=== PATIENT | male | born 1950 | race Two or more races ===

== ENCOUNTER → 2022-06-10 | Outpatient (CLI) | payer OTHER ==
[2022-06-10 07:07] LABS: Urine Bacteria NONE SEEN /hpf (None Seen); Urine Blood Negative /uL (Negative); Urine Specific Gravity 1.003 (1.001-1.035); Urine WBC <1 /hpf (0 - 3)
[2022-06-10 07:10] LABS: Basophils # (auto) 0 10 ^3/uL (0-0.2); Basophils % (auto) 0.6 % (0.0-2.0); Eosinophils # (auto) 0.1 10 ^3/uL (0-0.8); Hematocrit 39.7 % (41.0-53.0); Hemoglobin 13.6 g/dL (13.5-17.5); Lymphocytes # (auto) 1.5 10 ^3/uL (0.4-5.4); Lymphocytes % (auto) 23.5 % (10.0-50.0); Mean Corpuscular Hemoglobin 28.1 pg (28.0-32.0); Mean Corpuscular Hgb Conc. 34.3 g/dL (32.0-36.0); Mean Corpuscular Volume 81.9 fL (80.0-100.0); Monocytes # (auto) 0.6 10 ^3/uL (0-1.3); Monocytes % (auto) 8.6 % (0.0-12.0); Neutrophils # (auto) 4.2 10 ^3/uL (1.6-8.6); Neutrophils % (auto) 65.3 % (37.0-80.0); Nucleated Red Blood Cells % 0.2 %; Red Blood Cells 4.84 10^6/uL (4.5-5.90); Red Cell Distribution Width 14.1 % (11.8-14.3); White Blood Cell 6.4 10^3/uL (4.4-10.8)
[2022-06-10 07:39] LABS: Potassium 3.9 mmol/L (3.5-5.1)
[2022-06-10 07:42] LABS: BUN/Creatinine Ratio 13.3 (10.0-20.0)
== END | disposition home or self-care (01) ==
LOC: LAB 06:24
PROVIDERS: ATTEND Internal Medicine
DX: I10 Essential (primary) hypertension (principal); E11.9 Type 2 diabetes mellitus without complications; E78.5 Hyperlipidemia, unspecified; D69.6 Thrombocytopenia, unspecified
CPT/HCPCS: 36415; 80048; 80061; 81001; 83036; 85025

== ENCOUNTER → 2022-12-26 | Outpatient (CLI) | payer OTHER ==
[2022-12-26 08:00] LABS: Chloride 102 mmol/L (98-107); Potassium 4.1 mmol/L (3.5-5.1); Sodium 137 mmol/L (136-145)
[2022-12-26 08:01] LABS: Anion Gap 8 (5-15); Calcium 9.2 mg/dL (8.5-10.1); Carbon Dioxide 27 mmol/L (20-30)
[2022-12-26 08:06] LABS: BUN/Creatinine Ratio 13.1 (10.0-20.0); Blood Urea Nitrogen 13 mg/dL (9-23); Glucose 140 mg/dL (74-106)
== END | disposition home or self-care (01) ==
LOC: LAB 06:58
PROVIDERS: ATTEND Internal Medicine
DX: E11.65 Type 2 diabetes mellitus with hyperglycemia (principal)
CPT/HCPCS: 36415; 80048; 83036

== ENCOUNTER → 2023-05-22 | Outpatient (CLI) | payer OTHER ==
[2023-05-22 08:03] LABS: Cholesterol 134 mg/dL (< 200); Triglycerides 136 mg/dL (< 150)
[2023-05-22 08:04] LABS: LDL Cholesterol 91 mg/dL (< 100)
[2023-05-22 08:05] LABS: HDL Cholesterol 36 mg/dL (40-59)
== END | disposition home or self-care (01) ==
LOC: LAB 06:38
PROVIDERS: ATTEND Internal Medicine
DX: Z12.5 Encounter for screening for malignant neoplasm of prostate (principal); Z12.11 Encounter for screening for malignant neoplasm of colon; E11.65 Type 2 diabetes mellitus with hyperglycemia; E78.5 Hyperlipidemia, unspecified
CPT/HCPCS: 36415; 80061; 82270; 83036; 84153

== ENCOUNTER → 2023-09-09 | Outpatient (CLI) | payer OTHER ==
[2023-09-09 06:52] LABS: Urine Bacteria None Seen /hpf (None Seen)
[2023-09-09 07:44] LABS: Urine Blood Negative /uL (Negative); Urine Clarity Clear (Clear); Urine Color Yellow (Yellow); Urine Mucus FEW (None Seen); Urine Protein, UAD TRACE (Negative); Urine Specific Gravity 1.018 (1.001-1.035); Urine Urobilinogen Normal (Negative); Urine WBC 1 /hpf (0 - 3)
== END | disposition home or self-care (01) ==
LOC: LAB 06:41
PROVIDERS: ATTEND Internal Medicine
DX: E11.69 Type 2 diabetes mellitus with other specified complication (principal)
CPT/HCPCS: 36415; 81001; 83036

== ENCOUNTER → 2024-06-21 | Outpatient (CLI) | payer MEDICAID ==
[2024-06-21 07:07] LABS: Urine Bacteria None Seen /hpf (None Seen)
[2024-06-21 08:05] LABS: Urine Blood Negative /uL (Negative); Urine Clarity Clear (Clear); Urine Color Light-Yellow (Yellow); Urine Protein, UAD Negative (Negative); Urine Specific Gravity 1.013 (1.001-1.035); Urine Squamous Epithelial Cell FEW /hpf (<5); Urine Urobilinogen Normal (Negative); Urine WBC 1 /HPF (0-3); Urine pH 5.5 (5.0-9.0)
[2024-06-21 08:12] LABS: Basophils # (auto) 0 10 ^3/uL (0-0.2); Basophils % (auto) 0.6 % (0.0-2.0); Eosinophils # (auto) 0.1 10 ^3/uL (0-0.8); Eosinophils % (auto) 1.3 % (0.0-7.0); Hematocrit 40.1 % (41.0-53.0); Hemoglobin 13.2 g/dL (13.5-17.5); Lymphocytes # (auto) 1.4 10 ^3/uL (0.4-5.4); Lymphocytes % (auto) 18.7 % (10.0-50.0); Mean Corpuscular Hemoglobin 28.4 pg (28.0-32.0); Mean Corpuscular Volume 85.9 fL (80.0-100.0); Monocytes # (auto) 0.6 10 ^3/uL (0-1.3); Monocytes % (auto) 8.3 % (0.0-12.0); Neutrophils # (auto) 5.2 10 ^3/uL (1.6-8.6); Neutrophils % (auto) 71.1 % (37.0-80.0); Platelet Count (auto) 78 10^3/uL (140-450); Red Blood Cells 4.67 10^6/uL (4.5-5.90); White Blood Cell 7.4 10^3/uL (4.4-10.8)
[2024-06-21 08:23] LABS: Calcium 10.1 mg/dL (8.7-10.4); Carbon Dioxide 28 mmol/L (20-31); Chloride 102 mmol/L (98-107); Potassium 4.2 mmol/L (3.5-5.1); Sodium 138 mmol/L (136-145)
[2024-06-21 08:24] LABS: Anion Gap 8 (5-15)
[2024-06-21 08:29] LABS: Triglycerides 137 mg/dL (< 150)
[2024-06-21 08:30] LABS: BUN/Creatinine Ratio 15.4 (10.0-20.0); Blood Urea Nitrogen 16 mg/dL (9-23); Cholesterol 151 mg/dL (< 200)
[2024-06-21 08:34] LABS: Glucose 172 mg/dL (74-106); HDL Cholesterol 38 mg/dL (40-59); LDL Cholesterol 106 mg/dL (< 100)
== END | disposition home or self-care (01) ==
LOC: LAB 06:45
PROVIDERS: ATTEND Internal Medicine
DX: I10 Essential (primary) hypertension (principal); E78.5 Hyperlipidemia, unspecified; D69.3 Immune thrombocytopenic purpura
CPT/HCPCS: 36415; 80048; 80061; 81001; 83036; 85025

== ENCOUNTER 2024-07-13 15:23 | Inpatient (IN) | payer MEDICAID ==
[~2024-07-13] VITALS: Ht 175.3 cm; Wt 65.4 kg
--- NOTE | 2024-07-13 16:30 | ED.PDOC ---
HPI (NEURO) HPI Comments 74 year old male presents to the ED with chief complaint of facial droop. Patient reports that since waking up at 6am, he has been experiencing left sided facial droop and some slurred speech. Patient relays that his last known well was at 10pm last night. Patient denies any numbness, weakness, blurred vision, chest pain, headache, or SOB. Chief Complaint: Left Sided Weakness Time Seen by MD: 16:25 Primary Care Provider: PREET Brandon Notes: Nurses Notes, Medications, Allergies Information Source: Patient Mode of Arrival: Ambulatory Severity: Moderate Timing: Hours Duration: Since onset Prehospital treatment: None Onset: At rest Circumstances: Spontaneous Symptoms: Slurred speech, Other (Facial droop) Past Medical History PAST MEDICAL HISTORY: Denies Surgical History: Denies all surgeries Family History Family History: Reviewed,noncontributory to illness Social History Smoker: Non-Smoker Alcohol: Denies ETOH Use Drugs: Denies Drug Use Lives In: Home Constitutional: denies: chills, diaphoresis, fatigue, fever, malaise, sweats, weakness, others EENTM: denies: blurred vision, double vision, ear bleeding, ear discharge, ear drainage, ear pain, ear ringing, eye pain, eye redness, hearing loss, mouth pain, mouth swelling, nasal discharge, nose bleeding, nose congestion, nose pain, photophobia, tearing, throat pain, throat swelling, voice changes, others Respiratory: denies: cough, hemoptysis, orthopnea, SOB at rest, shortness of breath, SOB with excertion, stridor, wheezing, others Cardiovascular: denies: chest pain, dizzy spells, diaphoresis, Dyspnea on exertion, edema, irregular heart beat, left arm pain, lightheadedness, palpitations, PND, syncope, others Gastrointestinal: denies: abdomen distended, abdominal pain, blood streaked bowels, constipated, diarrhea, dysphagia, difficulty swallowing, hematemesis, melena, nausea, poor appetite, poor fluid intake, rectal bleeding, rectal pain, vomiting, others Genitourinary: denies: burning, dysuria, flank pain, frequency, hematuria, incontinence, penile discharge, penile sore, pain, testicle pain, testicle swelling, urgency, others Neurological: reports: speech problems, others (Facial droop); denies: dizziness, fainting, headache, left sided numbness, left sided weakness, numbness, paresthesia, pre-existing deficit, right sided numbness, right sided weakness, seizure, tingling, tremors, weakness Musculoskeletal: denies: back pain, gout, joint pain, joint swelling, muscle pain, muscle stiffness, neck pain, others Integumetry: denies: bruises, change in color, change in hair/nails, dryness, laceration, lesions, lumps, rash, wounds, others Allergic/Immunocompromised: denies: Difficulty Healing, Frequent Infections, Hives, Itching, others Hematologic/Lymphatic: denies: anemia, blood clots, easy bleeding, easy bruising, swollen glands, others Endocrine: denies: excessive hunger, excessive sweating, excessive thirst, excessive urination, flushing, intolerance to cold, intolerance to heat, unexplained weight gain, unexplained weight loss, others Psychiatric: denies: anxiety, bipolar disorder, depression, hopeless, panic disorder, schizophrenia, sleepless, suicidal, others All Other Systems: Reviewed and Negative Physical Exam General Appearance: No Apparent Distress, Normal HEENT: Normal ENT Inspection, Pharynx Normal, TMs Normal Neck: Full Range of Motion, Non-Tender, Normal, Normal Inspection Respiratory: Chest Non-Tender, Lungs Clear, No Accessory Muscle Use, No Respiratory Distress, Normal Breath Sounds Cardiovascular: No Edema, No JVD, No Murmur, No Gallop, Normal Peripheral Pulses, Regular Rate/Rhythm Breast Exam: Deferred Gastrointestinal: No Organomegaly, Non Tender, No Pulsatile Mass, Normal Bowel Sounds, Soft Genitalia: Deferred Pelvic: Deferred Rectal: Deferred Extremities: No calf tenderness, Normal capillary refill, Normal inspection, Normal range of motion, Non-tender, No pedal edema Musculoskeletal : Apperance: Normal Neurologic: Alert, beam dyer recessed vat II-XII nml as Tested, No Motor Deficits, Normal Affect, Normal Mood, No Sensory Deficits, Other (Left sided facial droop that spares the forehead.) Cerebellar Function: Normal Reflexes: Normal Skin: Dry, Normal Color, Warm Lymphatic: No Adenopathy Was a procedure done? Was a procedure done?: No X-Ray, Labs, Meds, VS Vital Signs Date Time Temp Pulse Resp B/P (MAP) Pulse Ox O2 Delivery O2 Flow Rate FiO2 07/13/24 20:21 Room Air* 0 21 07/13/24 20:19 97.7 73 12 157/85 (109) 93 97.7 07/13/24 15:30 80 07/13/24 15:23 97.5 81 16 149/76 (100) 97 97.5 Lab Test 07/13/24 18:53 07/13/24 17:00 07/13/24 15:34 Range/Units Lactic Acid Level 2.5 *H 4.3 *H 0.4-2.0 mmol/L White Blood Count 9.1 4.4-10.8 10^3/uL Red Blood Count 4.75 4.5-5.90 10^6/uL Hemoglobin 13.6 13.5-17.5 g/dL Hematocrit 40.1 L 41.0-53.0 % Mean Corpuscular Volume 84.4 80.0-100.0 fL Mean Corpuscular Hemoglobin 28.6 28.0-32.0 pg Mean Corpuscular Hemoglobin Concent 33.9 32.0-36.0 g/dL Red Cell Distribution Width 14.5 H 11.8-14.3 % Platelet Count 103 L 140-450 10^3/uL Mean Platelet Volume 9.3 6.9-10.8 fL Neutrophils (%) (Auto) 70.8 37.0-80.0 % Lymphocytes (%) (Auto) 19.3 10.0-50.0 % Monocytes (%) (Auto) 8.4 0.0-12.0 % Eosinophils (%) (Auto) 1.0 0.0-7.0 % Basophils (%) (Auto) 0.5 0.0-2.0 % Neutrophils # (Auto) 6.5 1.6-8.6 10 ^3/uL Lymphocytes # (Auto) 1.8 0.4-5.4 10 ^3/uL Monocytes # (Auto) 0.8 0-1.3 10 ^3/uL Eosinophils # (Auto) 0.1 0-0.8 10 ^3/uL Basophils # (Auto) 0 0-0.2 10 ^3/uL Nucleated Red Blood Cells 0.0 % Sodium Level 140 136-145 mmol/L Potassium Level 5.0 3.5-5.1 mmol/L Chloride Level 103 98-107 mmol/L Carbon Dioxide Level 27 20-31 mmol/L Anion Gap 10 5-15 Blood Urea Nitrogen 16 9-23 mg/dL Creatinine 1.05 0.700-1.30 mg/dL Glomerular Filtration Rate Calc 75 >90 mL/min BUN/Creatinine Ratio 15.2 10.0-20.0 Serum Glucose 96 74-106 mg/dL Calcium Level 10.8 H 8.7-10.4 mg/dL Troponin I High Sensitivity 5 </=54 ng/L B-Type Natriuretic Peptide 13.64 0-100 pg/mL POC Glucose 97 70-106 mg/dl Time of 1ST Reevaluation: 17:25 Reevaluation 1ST: Unchanged Patient Education/Counseling: Diagnosis, Treatment Family Education/Counseling: No Family Present Additional Information The following tests were ordered, and results were reviewed by me: Head CT, UA, Troponin, BNP, Lactic, EKG, CBC, BMP Additional Information was gathered from interviewing the following independent historians: None I reviewed and agreed with the following test results read by other providers: CT Head I discussed treatment and results with medical personnel and: patient Comprehensive systems review obtained and negative except for what is stated in the HPI. Departure 1 Departure Time of Disposition: 16:42 (Patient presents with facial droop concerning for CVA. Patient is up-to-date with the window for any acute intervention. We will admit patient for further workup and expert consultation) Impression: Primary Impression: Facial droop Disposition: ADMITTED INPATIENT Admit to: Med Surg Condition: Serious Critical Care Note Critical Care Time?: Yes Critical care comment: Concern for CVA Authorized and Performed by: Pratik Ly MD Total critical care time: Approximately 38 minutes Due to a high probability of clinically significant, life threatening deterioration, the patient required my highest level of preparedness to intervene emergently and I personally spent this critical care time directly and personally managing the patient. This critical care time included obtaining a history; examining the patient; pulse oximetry; ordering and review of studies; arranging urgent treatment with development of a management plan; evaluation of patient's response to treatment; frequent reassessment; and, discussions with other providers. This critical care time was performed to assess and manage the high probability of imminent, life-threatening deterioration that could result in multi-organ failure. It was exclusive of separately billable procedures and treating other patients and teaching time. Please see my other sections and the rest of the note for further information on patient assessment and treatment. Stability Stability form required: No Heart Score Heart Score: Heart Score Response (Comments) Value History N/A 0 EKG N/A 0 Age N/A 0 Risk Factors N/A 0 Troponin N/A 0 Total 0 I personally scribed for PRATIK LY MD ([email or web address]) on 07/13/24 at 16:30. Electronically submitted by Max Escobedo ([email or web address]). PRATIK LY MD July 13, 2024 16:30
--- NOTE | 2024-07-13 17:09 | DVH ---
EXAM: CT HEAD WITHOUT CONTRAST INDICATION: left sided facial droop TECHNIQUE: CT of the head without intravenous contrast. Radiation Dose Information: CT Dose: CTDI volume is 53.02 mGy. Dose-length product is 850.0 mGy*cm The dose indicators for CT are the volume Computed Tomography (CT) Dose Index (CTDIvol) and the Dose Length Product (DLP), and are measured in units of mGy and mGy-cm, respectively. These indicators are not patient dose, but values generated from the CT scanner acquisition factors. The report includes radiation exposure data for exposures received during this examination. 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 The christianson-white differentiation is intact. Patchy periventricular and subcortical white matter hypoattenuation is nonspecific but may be related to small vessel ischemic disease. The visualized paranasal sinuses and mastoid air cells are clear. The surrounding soft tissues and osseous structures are unremarkable. IMPRESSION: No acute intracranial abnormality. 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
[2024-07-13 17:17] LABS: Basophils # (auto) 0 10 ^3/uL (0-0.2); Basophils % (auto) 0.5 % (0.0-2.0); Eosinophils # (auto) 0.1 10 ^3/uL (0-0.8); Hematocrit 40.1 % (41.0-53.0); Hemoglobin 13.6 g/dL (13.5-17.5); Lymphocytes # (auto) 1.8 10 ^3/uL (0.4-5.4); Lymphocytes % (auto) 19.3 % (10.0-50.0); Mean Corpuscular Hemoglobin 28.6 pg (28.0-32.0); Mean Corpuscular Hgb Conc. 33.9 g/dL (32.0-36.0); Mean Corpuscular Volume 84.4 fL (80.0-100.0); Monocytes # (auto) 0.8 10 ^3/uL (0-1.3); Monocytes % (auto) 8.4 % (0.0-12.0); Neutrophils # (auto) 6.5 10 ^3/uL (1.6-8.6); Neutrophils % (auto) 70.8 % (37.0-80.0); Platelet Count (auto) 103 10^3/uL (140-450); Red Blood Cells 4.75 10^6/uL (4.5-5.90); Red Cell Distribution Width 14.5 % (11.8-14.3); White Blood Cell 9.1 10^3/uL (4.4-10.8)
[2024-07-13 17:27] LABS: Chloride 103 mmol/L (98-107); Sodium 140 mmol/L (136-145)
[2024-07-13 17:28] LABS: Anion Gap 10 (5-15); Carbon Dioxide 27 mmol/L (20-31)
[2024-07-13 17:33] LABS: BUN/Creatinine Ratio 15.2 (10.0-20.0); Blood Urea Nitrogen 16 mg/dL (9-23); Glucose 96 mg/dL (74-106)
[2024-07-13 18:07] LABS: Calcium 10.8 mg/dL (8.7-10.4)
[2024-07-13 18:16] LABS: Lactic Acid w/Reflex 4.3 mmol/L (0.4-2.0)
[2024-07-13] MEDS ORDERED: DEXTROSE (50%) 50ML SYRG IV PRN (20:30)
[2024-07-13] MEDS ORDERED: ACETAMINOPHEN 325 MG TAB PO PRN (20:30)
[2024-07-13 21:44] LABS: Urine Bacteria None Seen /hpf (None Seen)
[2024-07-13 21:53] LABS: Urine Blood Negative /uL (Negative); Urine Clarity Clear (Clear); Urine Color Yellow (Yellow); Urine Mucus FEW (None Seen); Urine Protein, UAD 1+ (Negative); Urine Specific Gravity 1.026 (1.001-1.035); Urine Squamous Epithelial Cell None Seen /hpf (<5); Urine Urobilinogen Normal (Negative); Urine WBC 1 /HPF (0-3); Urine pH 5.5 (5.0-9.0)
[2024-07-13] MEDS: predniSONE 20 MG TAB PO SCH (21:55)
[2024-07-13] MEDS: CLOPIDOGREL BISULFATE 75 MG TAB PO SCH (21:56)
[2024-07-13] MEDS: ASPirin 325 MG TAB PO SCH (21:59)
[2024-07-13] MEDS: ATORVASTATIN 20 MG TAB PO SCH (21:59)
[2024-07-13] MEDS: amLODIPine BESYLATE 5 MG TAB PO SCH (22:00)
[2024-07-13] MEDS: InsuLIN REG 1unit/0.01ml Soln (100units/ml) SC SCH (22:00)
[2024-07-13] MEDS ORDERED: predniSONE 20 MG TAB PO SCH (22:00)
[2024-07-13] MEDS: ACCU-CHEK COMFORT CURVE STRIP VI SCH (22:15)
[2024-07-13 22:46] VITALS: BP 118/82; PULSE 81; RESP 17; TEMP 98.2; O2SAT 99
[2024-07-13] MEDS ORDERED: GLIM4TAB42 PO (23:19)
[2024-07-13] MEDS ORDERED: SITA100T7 PO (23:19)
[2024-07-13] MEDS ORDERED: AMLO1TAB22 PO (23:19)
[2024-07-13] MEDS ORDERED: ATEN25TA PO (23:19)
[2024-07-13] MEDS ORDERED: SIMV10TA20 PO (23:19)
[2024-07-13] MEDS ORDERED: OMEP1CAP70 PO (23:19)
[2024-07-13] MEDS ORDERED: METF-372 PO (23:19)
--- NOTE | 2024-07-13 23:35 | DVHHP2 ---
History of Present Illness Reason for Visit: rule out stroke History of Present Illness Mr. Steve Rooney is a 74-year-old male with a past medical history notable for Ball�s palsy, type 2 diabetes mellitus, hypertension, and hyperlipidemia, who presented to the ED with a concern of numbness and more pronounced left side facial droop. He reports that upon waking at 6:00 AM, he noticed left-sided facial droop. He denies any associated numbness, weakness, blurred vision, chest pain, headache, or shortness of breath. He was last known well at 10:00 PM the previous night. He has a history of chronic left-sided facial droop attributed to prior Ball�s palsy, but today was more pronounced. There were no witnessed seizure-like activities or trauma, and symptoms occurred at rest. Past Medical History: Ball�s palsy (remote, left-sided) Type 2 diabetes mellitus Hypertension Hyperlipidemia Surgical History: Denies any prior surgeries Family History: Reviewed and noncontributory to present illness Social History: Non-smoker Denies alcohol or drug use Lives at home Review of Systems: All systems reviewed. Negative except as noted in HPI. Review of Systems Allergies: Coded Allergies: NO KNOWN ALLERGIES (Unverified , 07/13/24) Medications Current Medications Medications Dose Ordered Sig/Bud Route Start Time Stop Time Status Last Admin Dose Admin Acetaminophen 650 mg Q6HP PRN PO 07/13/24 20:30 Enoxaparin Sodium 40 mg DAILY SC 07/14/24 10:00 Clopidogrel Bisulfate 75 mg DAILY PO 07/13/24 20:30 Aspirin 81 mg DAILY PO 07/13/24 20:30 Atorvastatin Calcium 40 mg HS PO 07/13/24 20:30 07/13/24 22:17 40 MG Amlodipine Besylate 5 mg DAILY PO 07/13/24 20:30 07/13/24 22:00 5 MG Diagnostic Test (Pha) 1 strip ACHS 07/13/24 22:00 07/13/24 22:15 1 STRIP Insulin Human Regular ACHS SC 07/13/24 22:00 Dextrose 50 ml UD PRN IV 07/13/24 20:30 Prednisone 40 mg DAILY PO 07/13/24 21:15 Exam Vital Signs Vital Signs Date Time Temp Pulse Resp B/P (MAP) Pulse Ox O2 Delivery O2 Flow Rate FiO2 07/13/24 22:00 159/72 07/13/24 21:52 98.4 78 16 95 98.4 07/13/24 20:21 Room Air* 0 21 General Appearance: Alert, Oriented X3 HEENT: Atraumatic, PERRLA Respiratory: Clear to auscultation Cardiovascular: Regular rate, Normal S1, Normal S2 Abdominal: Normal bowel sounds Extremities: No clubbing, No cyanosis Skin: No rashes, No breakdown Neuro: Other ( Cranial nerve exam notable for left-sided facial droop. No other focal neurological deficits appreciated. Speech is clear. Strength 5/5 in all extremities, normal sensation, coordination, and gait. NIH Stroke Scale: 0 ) Psych/Mental Status: Mental status NL, Mood NL, Other Labs/Xrays Labs Test 07/13/24 22:05 07/13/24 21:28 07/13/24 18:53 07/13/24 17:00 Range/Units POC Glucose 212 H 70-106 mg/dl Urine Color Yellow Yellow Urine Clarity Clear Clear Urine pH 5.5 5.0-9.0 Urine Specific [place] 1.026 1.001-1.035 Urine Protein 1+ H Negative Urine Ketones Trace Negative Urine Blood Negative Negative /uL Urine Nitrite Negative Negative Urine Bilirubin Negative Negative Urine Urobilinogen Normal Negative mg/dL Urine Leukocyte Esterase Negative Negative /uL Urine RBC 1 0 - 3 /hpf Urine Microscopic WBC 1 0-3 /HPF Urine Squamous Epithelial Cells None seen <5 /hpf Urine Bacteria None seen None Seen /hpf Urine Mucus Few None Seen Urine Glucose Normal Normal mg/dL Lactic Acid Level 2.5 *H 0.4-2.0 mmol/L White Blood Count 9.1 4.4-10.8 10^3/uL Red Blood Count 4.75 4.5-5.90 10^6/uL Hemoglobin 13.6 13.5-17.5 g/dL Hematocrit 40.1 L 41.0-53.0 % Mean Corpuscular Volume 84.4 80.0-100.0 fL Mean Corpuscular Hemoglobin 28.6 28.0-32.0 pg Mean Corpuscular Hemoglobin Concent 33.9 32.0-36.0 g/dL Red Cell Distribution Width 14.5 H 11.8-14.3 % Platelet Count 103 L 140-450 10^3/uL Mean Platelet Volume 9.3 6.9-10.8 fL Neutrophils (%) (Auto) 70.8 37.0-80.0 % Lymphocytes (%) (Auto) 19.3 10.0-50.0 % Monocytes (%) (Auto) 8.4 0.0-12.0 % Eosinophils (%) (Auto) 1.0 0.0-7.0 % Basophils (%) (Auto) 0.5 0.0-2.0 % Neutrophils # (Auto) 6.5 1.6-8.6 10 ^3/uL Lymphocytes # (Auto) 1.8 0.4-5.4 10 ^3/uL Monocytes # (Auto) 0.8 0-1.3 10 ^3/uL Eosinophils # (Auto) 0.1 0-0.8 10 ^3/uL Basophils # (Auto) 0 0-0.2 10 ^3/uL Nucleated Red Blood Cells 0.0 % Sodium Level 140 136-145 mmol/L Potassium Level 5.0 3.5-5.1 mmol/L Chloride Level 103 98-107 mmol/L Carbon Dioxide Level 27 20-31 mmol/L Anion Gap 10 5-15 Blood Urea Nitrogen 16 9-23 mg/dL Creatinine 1.05 0.700-1.30 mg/dL Glomerular Filtration Rate Calc 75 >90 mL/min BUN/Creatinine Ratio 15.2 10.0-20.0 Serum Glucose 96 74-106 mg/dL Calcium Level 10.8 H 8.7-10.4 mg/dL Troponin I High Sensitivity 5 </=54 ng/L B-Type Natriuretic Peptide 13.64 0-100 pg/mL Assessment/Plan Assessment/Plan #Rule out stroke #Rule out bells palsy recurrence #Diabetes type 2 #Hypertension #Hyperlipidemia #Lactic acidosis Admit Med surg Diabetic diet Brain MRI Aspirin Clopidogrel Atorvastatin Prednisone (Addison palsy) ISS Enoxaparin SC Case dicussed with Dr Li Full code Plan discussed with: Patient, Other My Orders Orders - ROSEANN CHAVEZ RESIDENT Procedure Category Date Status Time Admit ADMIT 07/13/24 Transmitted 20:23 Code Status CODE 07/13/24 Transmitted 20:23 Vital Signs CHAYA 07/13/24 In Process 20:23 Review Orders With CHAYA 07/13/24 In Process Adm. 20:23 Consistent DIET 07/14/24 Transmitted Carb(Ccho)Diabetes Breakfast Acetaminophen Tablet PHA 07/13/24 In Process (Tylenol Tablet) 20:30 Notify Md Of Changes CHAYA 07/13/24 In Process From Base 20:23 Advance Directive CHAYA 07/13/24 In Process 20:23 Patient Condition ORDERS 07/13/24 Transmitted 20:23 Allergies CHAYA 07/13/24 In Process 20:23 Enoxaparin Sodium PHA 07/14/24 In Process (Lovenox) 10:00 Oxygen By Nasal RT 07/13/24 Transmitted Cannula 20:23 Stat Ekg For Chest CHAYA 07/13/24 In Process Pain 20:23 Notify Md Of Changes CHAYA 07/13/24 In Process From Base 20:23 Foreign Broadcast Specialist For CHAYA 07/13/24 In Process 24 Hours 20:23 Emergency Dysrhythmia CHAYA 07/13/24 In Process Protocol 20:23 Rhythm Strips Once CHAYA 07/13/24 In Process Every Shift 20:23 Clopidogrel Bisulfate PHA 07/13/24 In Process (Plavix) 20:30 Aspirin Tablet PHA 07/13/24 In Process 20:30 Atorvastatin (Lipitor) PHA 07/13/24 In Process 20:30 Amlodipine Tablet PHA 07/13/24 In Process (Norvasc Tablet) 20:30 Glucose Blood PHA 07/13/24 In Process (Accu-Chek Comfort 22:00 Insulin R (Human) PHA 07/13/24 In Process (Insulin R) 22:00 Dextrose 50% Syringe PHA 07/13/24 In Process 20:30 Prednisone Tablet PHA 07/13/24 In Process 21:15 Date of Service: July 13, 2024 Billing Provider: ROSEANN CHAVEZ Common Visit Codes: [id number] INP/OBS CARE (HIGH) Secondary Visit Codes: [id number] CARE PLAN 30 MINUTES ROSEANN CHAVEZ July 13, 2024 23:35
[2024-07-14] VITALS (8 sets, daily range): BP systolic 134–161; BP diastolic 46–84; PULSE 81–96; RESP 15–19; TEMP 97.7–98.6; O2SAT 95–98
[2024-07-14 07:58] LABS: Basophils # (auto) 0 10 ^3/uL (0-0.2); Basophils % (auto) 0.4 % (0.0-2.0); Eosinophils # (auto) 0 10 ^3/uL (0-0.8); Eosinophils % (auto) 0.6 % (0.0-7.0); Hematocrit 39.4 % (41.0-53.0); Hemoglobin 13.3 g/dL (13.5-17.5); Lymphocytes # (auto) 1.2 10 ^3/uL (0.4-5.4); Lymphocytes % (auto) 16.4 % (10.0-50.0); Mean Corpuscular Hemoglobin 28.3 pg (28.0-32.0); Mean Corpuscular Hgb Conc. 33.8 g/dL (32.0-36.0); Mean Corpuscular Volume 83.6 fL (80.0-100.0); Monocytes # (auto) 0.7 10 ^3/uL (0-1.3); Monocytes % (auto) 9.2 % (0.0-12.0); Neutrophils # (auto) 5.6 10 ^3/uL (1.6-8.6); Neutrophils % (auto) 73.4 % (37.0-80.0); Nucleated Red Blood Cells % 0.1 %; Platelet Count (auto) 84 10^3/uL (140-450); Red Blood Cells 4.71 10^6/uL (4.5-5.90); Red Cell Distribution Width 14.2 % (11.8-14.3); White Blood Cell 7.6 10^3/uL (4.4-10.8)
[2024-07-14 08:22] LABS: Alanine Aminotransferase 30 U/L (7-40); Albumin 4.5 g/dL (3.2-4.8); Alkaline Phosphatase 87 U/L (46-116); Anion Gap 10 (5-15); Aspartate Aminotransferase 20 U/L (13-40); BUN/Creatinine Ratio 16.7 (10.0-20.0); Bilirubin, Total 0.5 mg/dL (0.2-1.0); Blood Urea Nitrogen 14 mg/dL (9-23); Calcium 10.2 mg/dL (8.7-10.4); Carbon Dioxide 27 mmol/L (20-31); Chloride 104 mmol/L (98-107); Glucose 132 mg/dL (74-106); Potassium 3.7 mmol/L (3.5-5.1); Sodium 141 mmol/L (136-145)
[2024-07-14] MEDS: ENOXAPARIN SOD 40 MG/0.4 ML SYRINGE SC SCH (09:24)
[2024-07-14] MEDS: ASPirin 81 mg TAB PO SCH (09:25)
--- NOTE | 2024-07-14 12:15 | DVHPN2 ---
Subjective The patient is seen and examined at bedside. Still complain of numbness of the face. Reviewed: Care Plan, H&P, Labs, Medications, Previous Orders, Radiology Changes from previous H/P or p: No Changes Objective Vitals Vital Signs Date Time Temp Pulse Resp B/P (MAP) Pulse Ox O2 Delivery O2 Flow Rate FiO2 07/14/24 09:26 134/55 07/14/24 08:48 97.9 81 19 96 97.9 07/13/24 23:04 Room Air* 0 21 Intake/Output Intake and Output 07/14/24 07:00 Intake Total 80 ml Output Total 600 ml Balance -520 ml Intake Oral 80 ml Output Urine Total 600 ml # Bowel Movements 2 General Appearance: Alert, Oriented X3, Cooperative, No acute distress HEENT: Atraumatic, PERRLA, EOMI, Mucous membr. moist/pink Neck: Supple Lungs: Clear to auscultation, Normal air movement Cardiovascular: Regular rate, Normal S1, Normal S2, No murmurs, Gallops, Rubs Neuro: Cranial nerves 3-12 NL Medications Current Medications Medications Dose Ordered Sig/Bud Route Start Time Stop Time Status Last Admin Dose Admin Acetaminophen 650 mg Q6HP PRN PO 07/13/24 20:30 Enoxaparin Sodium 40 mg DAILY SC 07/14/24 10:00 Clopidogrel Bisulfate 75 mg DAILY PO 07/13/24 20:30 Atorvastatin Calcium 40 mg HS PO 07/13/24 20:30 07/13/24 22:17 40 MG Amlodipine Besylate 5 mg DAILY PO 07/13/24 20:30 07/14/24 09:26 5 MG Diagnostic Test (Pha) 1 strip ACHS 07/13/24 22:00 07/14/24 11:54 1 STRIP Insulin Human Regular ACHS SC 07/13/24 22:00 07/14/24 11:58 88 UNITS Dextrose 50 ml UD PRN IV 07/13/24 20:30 Prednisone 40 mg DAILY PO 07/13/24 21:15 07/14/24 09:25 40 MG Aspirin 81 mg DAILY PO 07/14/24 10:00 Laboratory Results Laboratory Tests 07/14/24 07:21 Chemistry Test 07/13/24 17:00 07/14/24 07:21 Calcium Level 10.8 mg/dL (8.7-10.4) H 10.2 mg/dL (8.7-10.4) Albumin 4.5 g/dL (3.2-4.8) Total Protein 8.0 g/dL (5.7-8.2) Cardiac Markers Test 07/13/24 17:00 B-Type Natriuretic Peptide 13.64 pg/mL (0-100) LFT Test 07/14/24 07:21 Alanine Aminotransferase (ALT) 30 U/L (7-40) Alkaline Phosphatase 87 U/L (46-116) Aspartate Amino Transferase (AST) 20 U/L (13-40) Total Bilirubin 0.5 mg/dL (0.2-1.0) HgA1c, TSH Test 07/14/24 07:21 Thyroid Stimulating Hormone (TSH) 1.77 uIU/mL (0.55-4.78) Urinalysis Test 07/13/24 21:28 Urine Color Yellow (Yellow) Urine Clarity Clear (Clear) Urine pH 5.5 (5.0-9.0) Urine Specific [place] 1.026 (1.001-1.035) Urine Protein 1+ (Negative) H Urine Ketones Trace (Negative) Urine Blood Negative /uL (Negative) Urine Nitrite Negative (Negative) Urine Bilirubin Negative (Negative) Urine Urobilinogen Normal mg/dL (Negative) Urine Leukocyte Esterase Negative /uL (Negative) Urine RBC 1 /hpf (0 - 3) Urine Microscopic WBC 1 /HPF (0-3) Urine Squamous Epithelial Cells None seen /hpf (<5) Urine Bacteria None seen /hpf (None Seen) Urine Mucus Few (None Seen) Urine Glucose Normal mg/dL (Normal) Labs and/or images reviewed: Labs reviewed by me Assessment/Plan Assessment/Plan #Rule out stroke #Rule out bells palsy recurrence #Diabetes type 2 #Hypertension #Hyperlipidemia #Lactic acidosis Continuing current management. Waiting for MRI to be done. Continuing sliding scale insulin. Continuing hypertensive medication. Plan discussed with: Patient, Daughter Date of Service: July 14, 2024 Billing Provider: JUAN PABLO WILKS MD Common Visit Codes: [id number] INP/OBS CARE(HIGH) JUAN PABLO WILKS MD July 14, 2024 12:15
--- NOTE | 2024-07-14 12:16 | DVH ---
PROCEDURE: MRI BRAIN HEAD WO CONTRAST INDICATION: rule out stroke EXAM DATE: 07/14/2024 11:08 AM COMPARISON: None TECHNIQUE: MRI of the brain without intravenous contrast. FINDINGS: Diffusion weighted images of the brain demonstrate no evidence of acute infarction. There is no evidence of acute intracranial hemorrhage, extra-axial collection, midline shift, hernia tion or hydrocephalus. The ventricles, sulci and cisterns appear age appropriate. There is a cystic lesion in the anterior right temporal lobe with surrounding edema measuring up to 2 4 mm. There are moderate changes of chronic microvascular ischemic disease. There are no signal abnormalities on the susceptibility weighted sequences. The major vascular flow voids are present. Near complete opacification of the right maxillary sinus. Patchy opacification of the bilateral ethm oid sinuses. The surrounding soft tissues and osseous structures are unremarkable. IMPRESSION: 1. Cystic lesion in the anterior right temporal lobe measuring up to 24 mm with surrounding edema. A cystic neoplasm is not excluded. Recommend further evaluation with MRI of the brain with contrast. 2. Moderate changes of chronic microvascular ischemic disease. No acute ischemia. Paranasal sinusitis involving the ethmoid and right maxillary sinuses. HS:Y
[2024-07-14] MEDS: DexAMETHasone SOD PHOS 10MG/1ML VIAL INJ IV ONE (17:50)
[2024-07-14] MEDS ORDERED: GADOTERATE MEG 10 MMOL/20ml INJ (0.5MMOL/ml) IV ONE (18:08)
--- NOTE | 2024-07-14 20:13 | DVH ---
EXAM: MRI BRAIN HEAD WO W CONTRAST CLINICAL HISTORY: cystic lesion COMPARISON: MRI BRAIN HEAD WO CONTRAST on DOS: 07/14/24 CONTRAST: Type of contrast: Clariscan Contrast injected: 20 mL Contrast wasted: 0 TECHNIQUE: Multiplanar, multisequence magnetic resonance imaging of the brain was performed after the administra tion of intravenous contrast. FINDINGS /impression: Postcontrast images of the brain demonstrate no enhancement within or adjacent to the cystic lesion i n the right temporal lobe. No enhancing intracranial lesion. The dural venous sinuses and intracranial arteries are patent. Paranasal sinus mucosal thickening and enhancement with moderate mucosal thickening in the right maxi llary sinus.
--- NOTE | 2024-07-14 20:32 | BSKYNEURO ---
[place] [facility] Note # Demographics Consult Type: General Neurology Patient Location: Inpatient First Name: Steve Last Name: Rooney Date of : 1950 Age: 74 Gender: Male Facility: [facility] Time of Initial Page (): 07/14/2024 18:35 Time of Return Call (): 07/14/2024 18:36 # HPI History: Patient is currently admitted yesterday for left sided facial numbness. He had work up for the facial droop. He has been having b/l weakness symptoms for 2 weeks. H/O HTN, DM, HLD # Scores Level of Consciousness 1a: [0] = Alert; keenly responsive LOC Questions 1b: [0] = Answers both questions correctly LOC Commands 1c: [0] = Performs both tasks correctly Best Gaze 2: [0] = Normal Visual 3: [0] = No visual loss Facial Palsy 4: [0] = Normal symmetrical movements Motor Arm Left 5a: [0] = No drift Motor Arm Right 5b: [0] = No drift Motor Leg Left 6a: [0] = No drift Motor Leg Right 6b: [0] = No drift Limb Ataxia 7: [0] = Absent Sensory 8: [0] = Normal Best Language 9: [0] = No aphasia Dysarthria 10: [0] = Normal Extinction and Inattention 11: [0] = No abnormality NIHSS Total: 0 # Assessment Impression: - Other MRI brain showed- Cystic lesion in the anterior right temporal lobe measuring up to 24 mm with surrounding edema. a cystic neoplasm is not excluded. His NIHSS is 0- no evidence of stroke. # Plan Labs: - comprehensive metabolic panel - CBC - ua - ESR Imaging: (urgency: routine): - MRI Brain with AND without contrast Diagnostic Test: - EEG Medication: - aspirin 81 mg daily - start statin with goal of LDL < 70 Other: - If patient has any neurological deterioration please call me back immediately - consult neurosurgery - neurology referral as outpatient - I have discussed my recommendations with the referring provider - telemetry monitoring Disposition: continue admission # Logistics Attestation of consult completion: The patient is located at: [facility]. Facility staff participated in the visit. I performed this telemedicine visit from my offsite office utilizing interactive 2 way audio and visual telecommunication technology. Total time spent in telemedicine encounter: I spent 10 minutes reviewing clinical data and/or imaging, obtaining history, examining the patient, commu nicating with the onsite care team, and in preparation of this report. # Demographics First Name: Steve Last Name: [facility] Facility: [facility] Yes JESSICA GARBER MD July 14, 2024 20:32
--- NOTE | 2024-07-14 21:18 | PRN ---
Misceleneous Note Note Note nursing had called provided and reviewed MRI of the brain without contrast and it shows cystic lesion anterior right temporal lobe measuring up to 24 mm with surrounding edema a cystic neoplasm was not included recommended evaluation with MRI of the brain with contrast no acute stroke seen. With these findings [facility] Neurology was called and they recommended MRI with contrast which was order DC Plavix and aspirin which nurse had taken care of he stated there was no stroke but he recommended EEG neurosurgery consult I also almost nursing in provide dexamethasone 6 mg IV x1 and then 4 mg every 6 hours for now neuro checks every 2 hours also case management consult for pending transfer to facility that has neuro search team. Patient will also need further workup LORRI ZAPATA DNP July 14, 2024 21:18
--- NOTE | 2024-07-14 21:27 | DVHINCON2 ---
Date of service: July 14, 2024 Referring Physician [place] Reason for Consultation Cystic lesion in anterior right temporal lobe with edema History of Present Illness This is a stat consultation Mr. Calloway is a 74 years old right-handed gentleman with a history of hypertension, diabetes, he came to the [facility] on 07/13/2024 with a chief complaint of pressure in the head. At this time, he is alert and fully oriented, without bilingual staff's help, he provided the following history For a few months of time, he has nonprogressive pressure feeling in the head, without focal weakness numbness except for numbness feeling in the left face on 07/13/2024. The patient denies facial drooping, headache He denies history of stroke, seizure MR head she was a cystic lesion in the anterior right temporal lobe, without enhancement Urinalysis, 07/13/2024: Unremarkable WBC/HB/PLT/MCV, 07/14/2024: 7.6/13.3/84/83.6 CMP, 07/14/2024: Unremarkable TSH, 07/14/2024: 1.77 CT head, 07/13/2024: No acute intracranial abnormality. Age indeterminate encephalomalacia right temporal lobe, MRI suggested MRI head, 07/14/2024: 1. Cystic lesion in the anterior right temporal lobe measuring up to 24 mm with surrounding edema. A cystic neoplasm is not excluded. Recommend further evaluation with MRI of the brain with contrast. 2. Moderate changes of chronic microvascular ischemic disease. No acute ischemia. Paranasal sinusitis involving the ethmoid and right maxillary sinuses. MR head brain with, 07/14/2024: Postcontrast images of the brain demonstrate no enhancement within or adjacent to the cystic lesion in the right temporal lobe. No enhancing intracranial lesion. The dural venous sinuses and intracranial arteries are patent. Paranasal sinus mucosal thickening and enhancement with moderate mucosal thickening in the right maxillary sinus. Past Medical History Hypertension, diabetes Past Surgical History No surgeries Family History: Patient reports no known family medical history. Family History Diabetes, coronary artery disease, heart attack, cancer Social History He is not a tobacco smoker, he denies a history of alcohol or recreational substance abuse Allergies: Coded Allergies: NO KNOWN ALLERGIES (Unverified , 07/13/24) Home Meds Reported Medications Omeprazole (Omeprazole Dr) 20 Mg Cap, 1 CAP PO DAILY 07/13/24 Metformin Hydrochloride (Metformin Hcl) 1,000 Mg Tab, 1 TAB PO DAILY 07/13/24 Simvastatin (Simvastatin) 10 Mg Tab, 1 TAB PO DAILY 07/13/24 Amlodipine Besylate (Amlodipine Besylate) 5 Mg Tab, 1 TAB PO DAILY 07/13/24 Atenolol (Atenolol) 25 Mg Tab, 1 TAB PO DAILY 07/13/24 Glimepiride (Glimepiride) 4 Mg Tab, 1 TAB PO BID 07/13/24 Sitagliptin Phosphate (Januvia) 100 Mg Tab, 1 TAB PO DAILY 07/13/24 Current Medications Current Medications Medications (Trade) Dose Ordered Sig/Bud Route PRN Reason Start Time Stop Time Status Last Admin Enoxaparin Sodium (Lovenox) 40 mg DAILY SC 07/14/24 10:00 Diagnostic Test (Pha) (Accu-Chek Comfort Curve T) 1 strip ACHS 07/13/24 22:00 07/14/24 18:53 Insulin Human Regular (InsuLIN R) ACHS SC 07/13/24 22:00 07/14/24 18:52 Prednisone 40 mg BID PO 07/13/24 22:00 07/13/24 21:11 DC Aspirin 81 mg DAILY PO 07/14/24 10:00 Dexamethasone Sodium Phosphate (Decadron Injection) 4 mg Q6HR IV 07/15/24 00:00 Review of Systems As above, the other systems are negative Vital Signs Vital Signs Date Time Temp Pulse Resp B/P (MAP) Pulse Ox O2 Delivery O2 Flow Rate FiO2 07/14/24 20:00 95 15 95 Room Air* 0 21 07/14/24 16:41 98.1 146/84 (104) 98.1 Physical Exam GENERAL EXAM: General: the patient is well developed and nourished. No acute distress. HEENT: Normocephalic, neck is supple, no carotid bruits. No mass. RESPIRATORY: Normal respiratory effort with symmetrical lung expansion. Lungs clear to auscultation. CARDIOVASCULAR: Regular rate and rhythm with no murmurs. S1, S2. ABDOMEN: Soft, nontender, normal bowel sound NEUROLOGICAL: MENTAL STATUS: Awake and alert. Oriented to person, place, time and general circumstances. Able to give personal history. SPEECH, LANGUAGE, HIGHER CORTICAL FUNCTION: no aphasia or dysathria. CRANIAL NERVES: #2: Intact visual kaur to confrontation. The optic discs were sharp #3,4,6: Pupils are equal, round and reactive. EOMs full and conjugate. No nystagmus. #5: Facial sensation intact in all three divisions bilaterally. Mandibular strength intact. #7: Facial muscles symmetrical and strength intact. #8: Hearing grossly normal to voice. #9,10: Uvula and soft palate rise in the midline. Swallow and voice are normal. #11: Trapezius and sternomastoid strength intact bilaterally. #12: Tongue midline. No fasciculations or atrophy. SENSATION: Sensation to touch and pinprick is normal. MOTOR: Normal tone in the upper and lower extremity. Normal muscle bulk. No fasciculations. No abnormal movements or posturing. Muscle strength of the major groups in the upper extremities is 5/5. Muscle strength of the major groups in the lower extremities is 5/5. REFLEXES: Deep tendon reflexes normal and symmetrical. No pathological reflexes. CEREBELLAR/COORDINATION: Finger to nose is normal bilaterally. GAIT/STATION: deferred. Labs/Diagnostic Data Labs Test 07/14/24 17:57 07/14/24 07:21 07/13/24 21:28 07/13/24 18:53 Range/Units POC Glucose 277 H 70-106 mg/dl White Blood Count 7.6 4.4-10.8 10^3/uL Red Blood Count 4.71 4.5-5.90 10^6/uL Hemoglobin 13.3 L 13.5-17.5 g/dL Hematocrit 39.4 L 41.0-53.0 % Mean Corpuscular Volume 83.6 80.0-100.0 fL Mean Corpuscular Hemoglobin 28.3 28.0-32.0 pg Mean Corpuscular Hemoglobin Concent 33.8 32.0-36.0 g/dL Red Cell Distribution Width 14.2 11.8-14.3 % Platelet Count 84 L 140-450 10^3/uL Mean Platelet Volume 9.7 6.9-10.8 fL Neutrophils (%) (Auto) 73.4 37.0-80.0 % Lymphocytes (%) (Auto) 16.4 10.0-50.0 % Monocytes (%) (Auto) 9.2 0.0-12.0 % Eosinophils (%) (Auto) 0.6 0.0-7.0 % Basophils (%) (Auto) 0.4 0.0-2.0 % Neutrophils # (Auto) 5.6 1.6-8.6 10 ^3/uL Lymphocytes # (Auto) 1.2 0.4-5.4 10 ^3/uL Monocytes # (Auto) 0.7 0-1.3 10 ^3/uL Eosinophils # (Auto) 0 0-0.8 10 ^3/uL Basophils # (Auto) 0 0-0.2 10 ^3/uL Nucleated Red Blood Cells 0.1 % Sodium Level 141 136-145 mmol/L Potassium Level 3.7 3.5-5.1 mmol/L Chloride Level 104 98-107 mmol/L Carbon Dioxide Level 27 20-31 mmol/L Anion Gap 10 5-15 Blood Urea Nitrogen 14 9-23 mg/dL Creatinine 0.84 0.700-1.30 mg/dL Glomerular Filtration Rate Calc 93 >90 mL/min BUN/Creatinine Ratio 16.7 10.0-20.0 Serum Glucose 132 H 74-106 mg/dL Calcium Level 10.2 8.7-10.4 mg/dL Total Bilirubin 0.5 0.2-1.0 mg/dL Aspartate Amino Transferase (AST) 20 13-40 U/L Alanine Aminotransferase (ALT) 30 7-40 U/L Alkaline Phosphatase 87 46-116 U/L Total Protein 8.0 5.7-8.2 g/dL Albumin 4.5 3.2-4.8 g/dL Thyroid Stimulating Hormone (TSH) 1.77 0.55-4.78 uIU/mL Urine Color Yellow Yellow Urine Clarity Clear Clear Urine pH 5.5 5.0-9.0 Urine Specific [place] 1.026 1.001-1.035 Urine Protein 1+ H Negative Urine Ketones Trace Negative Urine Blood Negative Negative /uL Urine Nitrite Negative Negative Urine Bilirubin Negative Negative Urine Urobilinogen Normal Negative mg/dL Urine Leukocyte Esterase Negative Negative /uL Urine RBC 1 0 - 3 /hpf Urine Microscopic WBC 1 0-3 /HPF Urine Squamous Epithelial Cells None seen <5 /hpf Urine Bacteria None seen None Seen /hpf Urine Mucus Few None Seen Urine Glucose Normal Normal mg/dL Lactic Acid Level 2.5 *H 0.4-2.0 mmol/L Test 5/7/25 17:00 Range/Units Troponin I High Sensitivity 5 </=54 ng/L B-Type Natriuretic Peptide 13.64 0-100 pg/mL Assessment Right temporal lobe cystic lesion, likely benign/incidental fighting Pressure feeling in the head, unclear clinical significance Left facial numbness is off unclear clinical significance in the absence of MRI correlation Plan/Recommendation Monitoring Supportive treatment Telemetry EEG Follow with the family doctor Re: Monitoring the Rt temporal lobe cyst Plan discussed with: Patient, Other ROMMEL MAYNARD MD July 14, 2024 21:26
[2024-07-14] MEDS: DexAMETHasone SOD PHOS 4 MG/1ML SDV INJ IV SCH (23:16)
[2024-07-15 01:00] VITALS: BP 145/85; PULSE 93; RESP 15; TEMP 98.2; O2SAT 93
[2024-07-15 05:00] VITALS: BP 151/72; PULSE 89; RESP 15; TEMP 97.9; O2SAT 94
[2024-07-15 08:00] VITALS: PULSE 89; RESP 15; O2SAT 95
[2024-07-15 09:00] VITALS: BP 165/83; PULSE 89; RESP 17; TEMP 97.5; O2SAT 94
[2024-07-15 12:36] VITALS: BP 149/82; PULSE 101; RESP 17; TEMP 97.7; O2SAT 95
--- NOTE | 2024-07-15 12:52 | DVHPN2 ---
Objective Vitals Vital Signs Date Time Temp Pulse Resp B/P (MAP) Pulse Ox O2 Delivery O2 Flow Rate FiO2 07/15/24 12:36 97.7 101 17 149/82 (104) 95 97.7 07/15/24 08:00 Room Air* 0 21 Intake/Output Intake and Output 07/15/24 07:00 Intake Total 1180 ml Output Total 100 ml Balance 1080 ml Intake Oral 1180 ml Output Urine Total 100 ml # Voids 3 # Bowel Movements 1 Medications Current Medications Medications Dose Ordered Sig/Bud Route Start Time Stop Time Status Last Admin Dose Admin Acetaminophen 650 mg Q6HP PRN PO 07/13/24 20:30 Enoxaparin Sodium 40 mg DAILY SC 07/14/24 10:00 Clopidogrel Bisulfate 75 mg DAILY PO 07/13/24 20:30 Atorvastatin Calcium 40 mg HS PO 07/13/24 20:30 07/14/24 23:15 40 MG Amlodipine Besylate 5 mg DAILY PO 07/13/24 20:30 07/15/24 09:22 5 MG Diagnostic Test (Pha) 1 strip ACHS 07/13/24 22:00 07/15/24 12:36 1 STRIP Insulin Human Regular ACHS SC 07/13/24 22:00 07/15/24 06:02 4 UNITS Dextrose 50 ml UD PRN IV 07/13/24 20:30 Prednisone 40 mg DAILY PO 07/13/24 21:15 07/15/24 09:21 40 MG Aspirin 81 mg DAILY PO 07/14/24 10:00 Dexamethasone Sodium Phosphate 4 mg Q6HR IV 07/15/24 00:00 07/15/24 12:35 4 MG Laboratory Results Laboratory Tests 07/14/24 07:21 Urinalysis Test 07/13/24 21:28 Urine Color Yellow (Yellow) Urine Clarity Clear (Clear) Urine pH 5.5 (5.0-9.0) Urine Specific [place] 1.026 (1.001-1.035) Urine Protein 1+ (Negative) H Urine Ketones Trace (Negative) Urine Blood Negative /uL (Negative) Urine Nitrite Negative (Negative) Urine Bilirubin Negative (Negative) Urine Urobilinogen Normal mg/dL (Negative) Urine Leukocyte Esterase Negative /uL (Negative) Urine RBC 1 /hpf (0 - 3) Urine Microscopic WBC 1 /HPF (0-3) Urine Squamous Epithelial Cells None seen /hpf (<5) Urine Bacteria None seen /hpf (None Seen) Urine Mucus Few (None Seen) Urine Glucose Normal mg/dL (Normal) JUAN PABLO WILKS MD July 15, 2024 12:52
--- NOTE | 2024-07-15 12:53 | DVHDS2 ---
Discharge Summary Date of Admission July 13, 2024 at 20:23 Date of Discharge: July 15, 2024 Admitting Diagnosis #Rule out stroke #Rule out bells palsy recurrence #Diabetes type 2 #Hypertension #Hyperlipidemia #Lactic acidosis Labs/Diagnostic Data: Laboratory Results Test 07/15/24 05:55 07/14/24 07:21 07/13/24 21:28 07/13/24 18:53 POC Glucose 237 mg/dl (70-106) White Blood Count 7.6 10^3/uL (4.4-10.8) Red Blood Count 4.71 10^6/uL (4.5-5.90) Hemoglobin 13.3 g/dL (13.5-17.5) Hematocrit 39.4 % (41.0-53.0) Mean Corpuscular Volume 83.6 fL (80.0-100.0) Mean Corpuscular Hemoglobin 28.3 pg (28.0-32.0) Mean Corpuscular Hemoglobin Concent 33.8 g/dL (32.0-36.0) Red Cell Distribution Width 14.2 % (11.8-14.3) Platelet Count 84 10^3/uL (140-450) Mean Platelet Volume 9.7 fL (6.9-10.8) Neutrophils (%) (Auto) 73.4 % (37.0-80.0) Lymphocytes (%) (Auto) 16.4 % (10.0-50.0) Monocytes (%) (Auto) 9.2 % (0.0-12.0) Eosinophils (%) (Auto) 0.6 % (0.0-7.0) Basophils (%) (Auto) 0.4 % (0.0-2.0) Neutrophils # (Auto) 5.6 10 ^3/uL (1.6-8.6) Lymphocytes # (Auto) 1.2 10 ^3/uL (0.4-5.4) Monocytes # (Auto) 0.7 10 ^3/uL (0-1.3) Eosinophils # (Auto) 0 10 ^3/uL (0-0.8) Basophils # (Auto) 0 10 ^3/uL (0-0.2) Nucleated Red Blood Cells 0.1 % Sodium Level 141 mmol/L (136-145) Potassium Level 3.7 mmol/L (3.5-5.1) Chloride Level 104 mmol/L (98-107) Carbon Dioxide Level 27 mmol/L (20-31) Anion Gap 10 (5-15) Blood Urea Nitrogen 14 mg/dL (9-23) Creatinine 0.84 mg/dL (0.700-1.30) Glomerular Filtration Rate Calc 93 mL/min (>90) BUN/Creatinine Ratio 16.7 (10.0-20.0) Serum Glucose 132 mg/dL (74-106) Calcium Level 10.2 mg/dL (8.7-10.4) Total Bilirubin 0.5 mg/dL (0.2-1.0) Aspartate Amino Transferase (AST) 20 U/L (13-40) Alanine Aminotransferase (ALT) 30 U/L (7-40) Alkaline Phosphatase 87 U/L (46-116) Total Protein 8.0 g/dL (5.7-8.2) Albumin 4.5 g/dL (3.2-4.8) Thyroid Stimulating Hormone (TSH) 1.77 uIU/mL (0.55-4.78) Urine Color Yellow (Yellow) Urine Clarity Clear (Clear) Urine pH 5.5 (5.0-9.0) Urine Specific [place] 1.026 (1.001-1.035) Urine Protein 1+ (Negative) Urine Ketones Trace (Negative) Urine Blood Negative /uL (Negative) Urine Nitrite Negative (Negative) Urine Bilirubin Negative (Negative) Urine Urobilinogen Normal mg/dL (Negative) Urine Leukocyte Esterase Negative /uL (Negative) Urine RBC 1 /hpf (0 - 3) Urine Microscopic WBC 1 /HPF (0-3) Urine Squamous Epithelial Cells None seen /hpf (<5) Urine Bacteria None seen /hpf (None Seen) Urine Mucus Few (None Seen) Urine Glucose Normal mg/dL (Normal) Lactic Acid Level 2.5 mmol/L (0.4-2.0) Test 07/13/24 17:00 Troponin I High Sensitivity 5 ng/L (</=54) B-Type Natriuretic Peptide 13.64 pg/mL (0-100) Other Laboratory Tests 07/14/24 07:21 Brief Hx & Hospital Course: This is a 74 years old male with past medical history notable for Ball palsy, diabetes type 2, hypertension, hyperlipidemia came to emergency department because of numbness and more profound left-sided facial droop. The patient had noticed his left-sided shoot more than normal. He denied any numbness, weakness, blurred vision or chest pain. Denied any headache or shortness for breath. He said he was doing well around 10:00 p.m. on the previous night. 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 The patient was admitted. Workup was done. CT head is negative for acute CVA. MRI without contrast of the brain showed: Cystic lesion in the anterior right temporal lobe measuring up to 24 mm with surrounding edema. A cystic neoplasm is not excluded. Recommend further evaluation with MRI of the brain with contrast. Moderate changes of chronic microvascular ischemic disease. No acute ischemia. Paranasal sinusitis involving the ethmoid and right maxillary sinuses. So subsequently patient had a stat MRI of brain with and without contrast which showed Postcontrast images of the brain demonstrate no enhancement within or adjacent to the cystic lesion in the right temporal lobe.No enhancing intracranial lesion. The dural venous sinuses and intracranial arteries are patent. Paranasal sinus mucosal thickening and enhancement with moderate mucosal thickening in the right maxillary sinus. Explained to the patient and family regarding to non enhance cysts in the brain and differential diagnosis. The patient's facial droop improved. The patient had no fever, chills. No ataxia or unsteady. I advised him to follow up with ENT for his nasal sinus evaluation. Activity as tolerated. Diet per home diet. Follow up with primary care physician 1-2 weeks. Advised to have a repeat MRI with and without contrast within six months. Physical exam: HEENT: Normocephalic atraumatic pupils equal react to light and accommodation. Extraocular muscles intact, conjunctiva pink, oropharynx moist, no thrush, no exudate. Lymphatic: No lymphadenopathy Cardiovascular exam: S1, S2 was heard. No murmurs, rubs, gallops Lung: Clear on auscultation bilaterally, no wheeze, rale, rhonchi. GI: Abdominal soft, nondistended, nontenderness, positive bowel sounds. Extremity: No crepitus, cyanosis, edema. Pedal pulses present bilateral. Full range of motion. Skin: Normal turgor, no rash. Psych: Alert, oriented x3. Neurology: No focal deficits, cranial nerve II to XII grossly intact. This medical document was created using an electronic medical record system with [employer] direct computerized dictation system. Although this document has been carefully reviewed, there may still be some phonetic and typographical errors. These areas are purely typographical due to imperfections of the software programs, and do not reflect any compromise in the patient's medical care. Condition at Discharge: Stable Final Diagnosis/Problems List cystic lesion of brain Paranasal sinus mucosal thickening and enhancement with moderate mucosal thickening in the right maxillary sinus possible sinusitis. CVA has been rule out. MRI show no acute CVA History of bells palsy DM type 2 HTN Hyperlipidemia Lactic Acidosis. Discharge Disposition: Home Discharge Statement: "Patient was advised to return to the ER or call 911 if any headaches, dizziness, shortness of breath, chest pain, abdominal pain, bleeding, fevers, or worsening of medical condition. Patient was counseled about treatment plan, medications, possible side effects, patient�verbalized understanding. All questions were answered to the best of my ability. This discharge took greater then 30 minutes in planning, reviewing documentation, counseling the patient, and discussing with other team members." ASSESSMENT ASSESSMENT Assessment Date of Service: July 15, 2024 Billing Provider: JUAN PABLO WILKS MD Common Visit Codes: 34389-AIG/OBS DISCH DAY >30min JUAN PABLO WILKS MD July 15, 2024 12:53
--- NOTE | 2024-07-15 12:54 | DVHDS2 ---
Discharge Summary Date of Admission July 13, 2024 at 20:23 Date of Discharge: July 15, 2024 Labs/Diagnostic Data: Laboratory Results Test 07/15/24 05:55 07/14/24 07:21 07/13/24 21:28 07/13/24 18:53 POC Glucose 237 mg/dl (70-106) White Blood Count 7.6 10^3/uL (4.4-10.8) Red Blood Count 4.71 10^6/uL (4.5-5.90) Hemoglobin 13.3 g/dL (13.5-17.5) Hematocrit 39.4 % (41.0-53.0) Mean Corpuscular Volume 83.6 fL (80.0-100.0) Mean Corpuscular Hemoglobin 28.3 pg (28.0-32.0) Mean Corpuscular Hemoglobin Concent 33.8 g/dL (32.0-36.0) Red Cell Distribution Width 14.2 % (11.8-14.3) Platelet Count 84 10^3/uL (140-450) Mean Platelet Volume 9.7 fL (6.9-10.8) Neutrophils (%) (Auto) 73.4 % (37.0-80.0) Lymphocytes (%) (Auto) 16.4 % (10.0-50.0) Monocytes (%) (Auto) 9.2 % (0.0-12.0) Eosinophils (%) (Auto) 0.6 % (0.0-7.0) Basophils (%) (Auto) 0.4 % (0.0-2.0) Neutrophils # (Auto) 5.6 10 ^3/uL (1.6-8.6) Lymphocytes # (Auto) 1.2 10 ^3/uL (0.4-5.4) Monocytes # (Auto) 0.7 10 ^3/uL (0-1.3) Eosinophils # (Auto) 0 10 ^3/uL (0-0.8) Basophils # (Auto) 0 10 ^3/uL (0-0.2) Nucleated Red Blood Cells 0.1 % Sodium Level 141 mmol/L (136-145) Potassium Level 3.7 mmol/L (3.5-5.1) Chloride Level 104 mmol/L (98-107) Carbon Dioxide Level 27 mmol/L (20-31) Anion Gap 10 (5-15) Blood Urea Nitrogen 14 mg/dL (9-23) Creatinine 0.84 mg/dL (0.700-1.30) Glomerular Filtration Rate Calc 93 mL/min (>90) BUN/Creatinine Ratio 16.7 (10.0-20.0) Serum Glucose 132 mg/dL (74-106) Calcium Level 10.2 mg/dL (8.7-10.4) Total Bilirubin 0.5 mg/dL (0.2-1.0) Aspartate Amino Transferase (AST) 20 U/L (13-40) Alanine Aminotransferase (ALT) 30 U/L (7-40) Alkaline Phosphatase 87 U/L (46-116) Total Protein 8.0 g/dL (5.7-8.2) Albumin 4.5 g/dL (3.2-4.8) Thyroid Stimulating Hormone (TSH) 1.77 uIU/mL (0.55-4.78) Urine Color Yellow (Yellow) Urine Clarity Clear (Clear) Urine pH 5.5 (5.0-9.0) Urine Specific [place] 1.026 (1.001-1.035) Urine Protein 1+ (Negative) Urine Ketones Trace (Negative) Urine Blood Negative /uL (Negative) Urine Nitrite Negative (Negative) Urine Bilirubin Negative (Negative) Urine Urobilinogen Normal mg/dL (Negative) Urine Leukocyte Esterase Negative /uL (Negative) Urine RBC 1 /hpf (0 - 3) Urine Microscopic WBC 1 /HPF (0-3) Urine Squamous Epithelial Cells None seen /hpf (<5) Urine Bacteria None seen /hpf (None Seen) Urine Mucus Few (None Seen) Urine Glucose Normal mg/dL (Normal) Lactic Acid Level 2.5 mmol/L (0.4-2.0) Test 07/13/24 17:00 Troponin I High Sensitivity 5 ng/L (</=54) B-Type Natriuretic Peptide 13.64 pg/mL (0-100) Other Laboratory Tests 07/14/24 07:21 Final Diagnosis/Problems List TIA Discharge Disposition: Home Discharge Instruct/Medications Diet: Cardiac 2g Na,low cholest Activity: No Restrictions, As Tolerated Follow Up/Referral: pcp 1-2 weeks Medications: Resume home meds Discharge Statement: "Patient was advised to return to the ER or call 911 if any headaches, dizziness, shortness of breath, chest pain, abdominal pain, bleeding, fevers, or worsening of medical condition. Patient was counseled about treatment plan, medications, possible side effects, patient�verbalized understanding. All questions were answered to the best of my ability. This discharge took greater then 30 minutes in planning, reviewing documentation, counseling the patient, and discussing with other team members." ASSESSMENT ASSESSMENT Assessment JUAN PABLO GOLDMAN MD July 15, 2024 12:54
[2024-07-15 16:04] VITALS: BP 168/83; PULSE 100; RESP 17; TEMP 36.5
== END 2024-07-15 16:48 | disposition home or self-care (01) | DRG 69 ==
LOC: ER 15:33 → OVERFLOW 20:23 → WEST WING 22:46
PROVIDERS: ADMIT Internal Medicine; ATTEND Internal Medicine
DX: G45.9 Transient cerebral ischemic attack, unspecified (principal); E87.20 Acidosis, unspecified; G51.0 Bell's palsy; I10 Essential (primary) hypertension; E78.5 Hyperlipidemia, unspecified; E11.9 Type 2 diabetes mellitus without complications; Z83.3 Family history of diabetes mellitus; Z82.49 Family history of ischemic heart disease and other diseases of the circulatory system; Z79.84 Long term (current) use of oral hypoglycemic drugs; Z79.899 Other long term (current) drug therapy
CPT/HCPCS: 36415; 70450; 70551; 70553; 80048; 80053; 81001; 82962; 83605; 83880; 84443; 84484; 85025; 99291; G0378; J1100; J1815

== ENCOUNTER 2024-09-12 06:46 | Outpatient (CLI) | payer MEDICAID ==
[~2024-09-12 06:46] MED LIST: AMLO1TAB22 PO; ATEN25TA PO; GLIM4TAB42 PO; METF-372 PO; OMEP1CAP70 PO; SIMV10TA20 PO; SITA100T7 PO
[2024-09-12 07:42] LABS: Hematocrit 41.7 % (41.0-53.0); Hemoglobin 13.8 g/dL (13.5-17.5); Mean Corpuscular Hemoglobin 28.1 pg (28.0-32.0); Mean Corpuscular Volume 84.9 fL (80.0-100.0); Nucleated Red Blood Cells % 0.0 %
[2024-09-12 07:51] LABS: INR 1.05 (0.9-1.15); Partial Thromboplastin Time 27.9 SEC (24.5-34.5); Prothrombin Time 11.1 sec (9.3-11.8)
[2024-09-12 09:02] LABS: Iron 79.0 ug/dL (65-175)
[2024-09-12 09:05] LABS: Total Iron Binding Capacity 324.0 ug/dL (250-425)
[2024-09-12 10:00] LABS: Hepatitis B Surface Antigen Negative (Negative)
[2024-09-12 10:16] LABS: Hepatitis C Antibody Negative (Negative)
[2024-09-12 11:16] LABS: Ferritin 40.0 ng/mL (22-322)
[2024-09-12 13:29] LABS: Wright Stain Ready for Review
== END 2024-09-12 17:00 | disposition home or self-care (01) ==
LOC: LAB 06:46
PROVIDERS: ATTEND Student in an Organized Health Care Education/Training Program
DX: D69.6 Thrombocytopenia, unspecified (principal)
CPT/HCPCS: 36415; 80074; 82607; 82728; 82746; 83540; 83550; 85025; 85610; 85613; 85670; 85705; 85730; 85732; 86703

== ENCOUNTER 2024-09-19 07:04 | Outpatient (CLI) | payer MEDICAID ==
[2024-09-19 08:45] LABS: Triglycerides 121 mg/dL (< 150)
[2024-09-19 08:46] LABS: Cholesterol 119 mg/dL (< 200)
[2024-09-19 08:53] LABS: HDL Cholesterol 33 mg/dL (40-59)
== END 2024-09-19 17:00 | disposition home or self-care (01) ==
LOC: LAB 07:04
PROVIDERS: ATTEND Internal Medicine
DX: E11.65 Type 2 diabetes mellitus with hyperglycemia (principal); E78.5 Hyperlipidemia, unspecified; Z12.5 Encounter for screening for malignant neoplasm of prostate
CPT/HCPCS: 36415; 80061; 83036; 84153

== ENCOUNTER 2024-09-30 17:46 | Emergency (ER) | payer MEDICAID ==
[~2024-09-30] VITALS: Ht 175.3 cm; Wt 66.1 kg
--- NOTE | 2024-09-30 18:07 | ED.PDOC ---
Eye-HPI HPI Comments A 74 year-old male presents to the ED with a chief complaint of throat pain with associated R sided ear pain as of yesterday. Patient denies any recent exposure to illness, as well as, any further associated symptoms of cough, difficulty breathing, dizziness, fever, chills, dysuria, or N/V. Upon evaluation in triage, patients vitals are stable. Past Medical history: HTN, DM, High Lipids Past Surgical history: DENIES ANY Medications: DENIES ANY Social History: Denies smoking, ETOH, and drug use. Allergies: NKA Bonner: HPI: Poor Historian. No sick contacts. No fever. No cough. REVIEW OF SYSTEMS: CONSTITUTIONAL: Denies acute: fever, diaphoresis, chills, generalized weakness. HEAD: Denies acute: headache, photophobia Eyes: Denies acute: Double vision, vision loss, eye pain, eye discharge. EARS: Denies acute: tinnitus, hearing loss, ear discharge, THROAT: Denies acute: swelling, difficulty swallowing , pain with swallowing, change in voice. NECK: Denies acute: neck pain, neck swelling, stiff neck. HEART: Denies acute : chest pain, palpitations, LUNGS: Denies acute: SOB, wheezing, cough, hemoptysis ABDOMEN: Denies acute: abdominal pain, Nausea, Vomiting, diarrhea, melena , hematemesis, hematochezia SKIN: Denies acute: rash, redness, lesions, itchiness. EXTREMITIES: Denies acute: calf pain, numbness, tingling, weakness, denies pain in extremity. Denies acute: Low back pain. Neuro: Denies acute: focal neurological deficit, motor or sensory focal neurological deficit, tremors, seizure like activity, confusion, dizziness, change in mental status, loss of bowel or bladder function, cauda equina like symptoms. : Denies acute: dysuria, hematuria, flank pain, increase in urinary frequency. PSYCH: Denies acute: hallucination, suicidal ideation, homicidal ideation. PHYSICAL EXAM: General: ---no-----acute distress, awake and alert. Head: normocephalic, atraumatic. Neck: supple, trachea is midline, no swelling. No lymphadenopathy Throat: Normal phonation. No obstruction, no swelling, no deviation, no erythema. Minimal exudates. Denies any coughing Eyes:, no erythema, no purulent discharge, no proptosis, no icterus. Heart: regular rate, regular rhythm, no significant murmur appreciated. Lungs: no apparent respiratory distress, Able to speak in full sentences. No wheezing, no rhonchi, no crackles. No stridors Clear to auscultation bilaterally. Abdomen: non tender to palpation, non distended, soft, no guarding, no rebound, + bowel sounds. Neuro: Awake, Alert, oriented to name, self, situation, follows commands GCS=15. Speech is normal. Skin: no petechia, no purpura, no cyanosis, non-pale, not jaundice. Lower extremities: --no - Pitting edema no deformity, no focal swelling, no calf TTP. Makes eye contact. moves all four extremities. Face: no apparent facial droop. Ears: Nontender to palpation. No apparent erythema of tympanic membranes bilaterally Ambulating in the ED independently. No nuchal rigidity, Kernig's sign, Brudzinski's sign, no meningeal signs. ED COURSE: DISCLAIMER: This medical document was created using an electronic medical record system with voice recognition software and computerized dictation system. Although this document has been carefully reviewed, there might still be some phonetic and typographical errors. Occasional wrong-word or "sound-alike" substitutions may have occurred due to the inherent limitations of voice recognition software. These areas are purely typographical due to imperfections of the software programs and do not reflect any compromise in the patient's medical care. Please read the chart carefully and recognize, using context, where these substitutions have occurred. Chief Complaint: Throat Pain Time Seen by MD: 18:03 Primary Care Provider: PREET Reviewed Notes: Medications, Allergies Allergies: Coded Allergies: NO KNOWN ALLERGIES (Unverified , 07/13/24) Home Meds Reported Medications Omeprazole (Omeprazole Dr) 20 Mg Cap, 1 CAP PO DAILY 07/13/24 Metformin Hydrochloride (Metformin Hcl) 1,000 Mg Tab, 1 TAB PO DAILY 07/13/24 Simvastatin (Simvastatin) 10 Mg Tab, 1 TAB PO DAILY 07/13/24 Amlodipine Besylate (Amlodipine Besylate) 5 Mg Tab, 1 TAB PO DAILY 07/13/24 Atenolol (Atenolol) 25 Mg Tab, 1 TAB PO DAILY 07/13/24 Glimepiride (Glimepiride) 4 Mg Tab, 1 TAB PO BID 07/13/24 Sitagliptin Phosphate (Januvia) 100 Mg Tab, 1 TAB PO DAILY 07/13/24 Information Source: Patient Mode of Arrival: Ambulatory Timing: Days (1) Duration: Since onset Prehospital treatment: None Quality: Pain Onset: Spontaneous Associated signs and symptoms: Sore Throat, Ear Pain Past Medical History PAST MEDICAL HISTORY: DM, High Lipids, HTN Surgical History: Denies all surgeries Family History Family History: Reviewed,noncontributory to illness Social History Smoker: Non-Smoker Alcohol: Denies ETOH Use Drugs: Denies Drug Use Lives In: Home Was a procedure done? Was a procedure done?: No EENT DIFF Eye: Other Sore Throat: Epiglottitis, Hand Foot Mouth Disease, Herpangina, Herpetic Stomatitis, Mononeucleosis, Justin's Angina, Peritonsillar Abscess, Peritonsillar Cellulitis, Pharyngitis, Diptheria, Streptococcal, Viral Pharyngitis, URI X-Ray, Labs, Meds, VS Vital Signs Date Time Temp Pulse Resp B/P (MAP) Pulse Ox O2 Delivery O2 Flow Rate FiO2 09/30/24 21:22 16 97 Room Air* 0 21 09/30/24 21:20 98.6 76 16 149/68 (95) 97 98.6 09/30/24 17:59 98.0 76 16 149/73 (98) 97 98.0 Lab Test 09/30/24 20:22 09/30/24 20:11 09/30/24 19:27 09/30/24 19:17 Range/Units Lactic Acid Level 1.7 0.4-2.0 mmol/L Urine Color Colorless Yellow Urine Clarity Clear Clear Urine pH 5.5 5.0-9.0 Urine Specific [place] 1.003 1.001-1.035 Urine Protein Negative Negative Urine Ketones Negative Negative Urine Blood Negative Negative /uL Urine Nitrite Negative Negative Urine Bilirubin Negative Negative Urine Urobilinogen Normal Negative mg/dL Urine Leukocyte Esterase Negative Negative /uL Urine RBC None seen 0 - 3 /hpf Urine Microscopic WBC < 1 0-3 /HPF Urine Squamous Epithelial Cells None seen <5 /hpf Urine Bacteria None seen None Seen /hpf Urine Glucose 1+ H Normal mg/dL Troponin I High Sensitivity < 3 L </=54 ng/L Influenza Type A Antigen Negative Negative Influenza Type B Antigen Negative Negative SARS-CoV-2 Antigen (Rapid) Negative NEGATIVE Group A Streptococcus Rapid Positive Test 09/30/24 18:27 Range/Units White Blood Count 8.4 4.4-10.8 10^3/uL Red Blood Count 4.61 4.5-5.90 10^6/uL Hemoglobin 13.3 L 13.5-17.5 g/dL Hematocrit 39.2 L 41.0-53.0 % Mean Corpuscular Volume 85.0 80.0-100.0 fL Mean Corpuscular Hemoglobin 28.9 28.0-32.0 pg Mean Corpuscular Hemoglobin Concent 34.0 32.0-36.0 g/dL Red Cell Distribution Width 14.3 11.8-14.3 % Platelet Count 85 L 140-450 10^3/uL Mean Platelet Volume 9.3 6.9-10.8 fL Neutrophils (%) (Auto) 68.6 37.0-80.0 % Lymphocytes (%) (Auto) 19.2 10.0-50.0 % Monocytes (%) (Auto) 11.1 0.0-12.0 % Eosinophils (%) (Auto) 0.8 0.0-7.0 % Basophils (%) (Auto) 0.3 0.0-2.0 % Neutrophils # (Auto) 5.8 1.6-8.6 10 ^3/uL Lymphocytes # (Auto) 1.6 0.4-5.4 10 ^3/uL Monocytes # (Auto) 0.9 0-1.3 10 ^3/uL Eosinophils # (Auto) 0.1 0-0.8 10 ^3/uL Basophils # (Auto) 0 0-0.2 10 ^3/uL Nucleated Red Blood Cells 0.0 % Sodium Level 138 136-145 mmol/L Potassium Level 4.7 3.5-5.1 mmol/L Chloride Level 102 98-107 mmol/L Carbon Dioxide Level 27 20-31 mmol/L Anion Gap 9 5-15 Blood Urea Nitrogen 15 9-23 mg/dL Creatinine 1.21 0.700-1.30 mg/dL Glomerular Filtration Rate Calc 64 >90 mL/min BUN/Creatinine Ratio 12.4 10.0-20.0 Serum Glucose 137 H 74-106 mg/dL Lactic Acid Level 2.1 *H 0.4-2.0 mmol/L Calcium Level 9.5 8.7-10.4 mg/dL Total Bilirubin 0.4 0.2-1.0 mg/dL Aspartate Amino Transferase (AST) 19 13-40 U/L Alanine Aminotransferase (ALT) 22 7-40 U/L Alkaline Phosphatase 81 46-116 U/L Troponin I High Sensitivity < 3 L </=54 ng/L Total Protein 7.7 5.7-8.2 g/dL Albumin 4.7 3.2-4.8 g/dL Current Medications Medications (Trade) Dose Ordered Sig/Bud Route Start Time Stop Time Status Last Admin Sodium Chloride 1,000 ml @ 1,000 mls/hr Q1H ONCE IV 09/30/24 19:15 09/30/24 20:14 DC 09/30/24 20:10 Dexamethasone Sodium Phosphate (Decadron Injection) 10 mg ONCE ONCE IV 09/30/24 20:30 09/30/24 21:17 DC 09/30/24 21:29 Penicillin G Benzathine (Bicillin L-A) 1,200,000 units ONCE ONCE IM 09/30/24 20:30 09/30/24 21:17 DC 09/30/24 21:29 [place] [id number] Ph: [phone] DIAGNOSTIC IMAGING Diagnostic Imaging Report : [id number] Signed PATIENT: JACOBY ALEJANDROACCT: [id number] UNIT: [id number] : 1950 LOC: ER ROOM / BED: / AGE / SEX: 74 / M ADM STATUS: REG ER SERVICE 703 ORDERING PHYSICIAN: OSCAR RASMUSSEN DO PROCEDURE(s): CXRP - CHEST PORTABLE REASON: flu like symptoms ORDER NUMBER(s): [id number], ACCESSION NUMBER(s): [id number] CHEST RADIOGRAPH Indication: flu like symptoms Technique: Single frontal view of the chest was obtained Comparison: None FINDINGS: Lines and Tubes: None Lungs: No focal consolidation. Pleura: No effusion. No pneumothorax. Cardiomediastinal contours: Unremarkable Bones: No acute osseous abnormality. IMPRESSION: 1. No acute cardiopulmonary disease. Time of 1ST Reevaluation: 18:24 Reevaluation 1ST: Unchanged Patient Education/Counseling: Diagnosis, Treatment Family Education/Counseling: Diagnosis, Treatment Medical Screening: No EMC Exist At This Time Comments MDM: patient presented with the above HPI.---sore throat---workup was initiated. patient was found with the above mentioned diagnosis. the following medications were ordered: please refer to order lists of meds and tests obtained by myself Dr. Rasmussen. Patient ED course and VS have been stabilized. Patient has been reassessed in the ED and remained in a stable condition. Pertinent incidental findings were discussed with the patient and/or family. Patient/family voices understanding and is agreeable with plan. Patient has been observed in the ED adequate length of time to insure improvement/stability. Escalation of care considered: Consideration of escalation to observation or admission Patient was found with a strep positive. Patient is given penicillin IM and Decadron. Patient was DISCHARGED home in a stable condition. All the reports of any imaging studies that were ordered by myself were reviewed by myself. SEPSIS Sepsis Screen Physician Orders Communication Clerk (09/30/24 ) Chest Portable (09/30/24 17:51) Electrocardigram (09/30/24 17:51) Vital Signs Date Time Temp Pulse Resp B/P (MAP) Pulse Ox O2 Delivery O2 Flow Rate FiO2 09/30/24 21:22 16 97 Room Air* 0 21 09/30/24 21:20 98.6 76 16 149/68 (95) 97 98.6 09/30/24 17:59 98.0 76 16 149/73 (98) 97 98.0 Laboratory Tests Test 09/30/24 18:27 09/30/24 20:22 Lactic Acid Level 2.1 mmol/L (0.4-2.0) *H 1.7 mmol/L (0.4-2.0) White Blood Count 8.4 10^3/uL (4.4-10.8) Departure 1 Departure Time of Disposition: 18:43 Impression: Primary Impression: Strep throat Disposition: 01 HOME / SELF CARE / HOMELESS Condition: Stable Additional Instructions: Additional instructions: You MUST follow-up with your primary care/family doctor in 1 to 2 days. If you are unable to see your primary care/family doctor, please return to our emergency room for re-assessment and re-evaluation in 1 to 2 days. Return to the emergency room here in our facility or to the nearest ER [facility] if your symptoms change or worsen. CONSULTATIONS: you MUST Follow-up for consultation as soon as possible with: -ENT doctor in 1-2 days. Please call for appointment You MUST call the consultants office yourself to make an appointment. You may need to arrange that through your insurance and/or your primary/family doctor. If you are unable to see the farm consultant in 1 to 2 days, you must return to our emergency room (or any other ER of your choice) for re-assessment and re- evaluation. Adequate fluid hydration. Discharged With: Self, Spouse Critical Care Note Critical Care Time?: No I personally scribed for OSCAR RASMUSSEN DO ([email or web address]) on 09/30/24 at 18:07. Electronically submitted by Arabella Beasley ([email or web address]). I personally scribed for OSCAR RASMUSSEN DO ([email or web address]) on 09/30/24 at 18:54. Electronically submitted by Arabella Beasley ([email or web address]). OSCAR RASMUSSEN DO Sep 30, 2024 18:07
--- NOTE | 2024-09-30 18:40 | DVH ---
CHEST RADIOGRAPH Indication: flu like symptoms Technique: Single frontal view of the chest was obtained Comparison: None FINDINGS: Lines and Tubes: None Lungs: No focal consolidation. Pleura: No effusion. No pneumothorax. Cardiomediastinal contours: Unremarkable Bones: No acute osseous abnormality. IMPRESSION: 1. No acute cardiopulmonary disease.
[2024-09-30 18:44] LABS: Hematocrit 39.2 % (41.0-53.0); Hemoglobin 13.3 g/dL (13.5-17.5); Mean Corpuscular Hemoglobin 28.9 pg (28.0-32.0); Mean Corpuscular Volume 85.0 fL (80.0-100.0); Nucleated Red Blood Cells % 0.0 %
[2024-09-30 18:59] LABS: Alanine Aminotransferase 22 U/L (7-40); Albumin 4.7 g/dL (3.2-4.8); Alkaline Phosphatase 81 U/L (46-116); Anion Gap 9 (5-15); BUN/Creatinine Ratio 12.4 (10.0-20.0); Blood Urea Nitrogen 15 mg/dL (9-23); Calcium 9.5 mg/dL (8.7-10.4); Carbon Dioxide 27 mmol/L (20-31); Chloride 102 mmol/L (98-107); Potassium 4.7 mmol/L (3.5-5.1); Sodium 138 mmol/L (136-145); Total Protein 7.7 g/dL (5.7-8.2)
[2024-09-30 19:00] LABS: Bilirubin, Total 0.4 mg/dL (0.2-1.0); Glucose 137 mg/dL (74-106)
[2024-09-30 19:02] LABS: Lactic Acid w/Reflex 2.1 mmol/L (0.4-2.0)
[2024-09-30 19:42] LABS: COVID19 ANTIGEN SOFIA FIA NEGATIVE (NEGATIVE)
[2024-09-30 19:43] LABS: Rapid Strep A Screen-Throat Positive
[2024-09-30] MEDS: SODIUM CHLORIDE 0.9% 1,000 ML IV ONE (20:10)
[2024-09-30 20:42] LABS: Urine Protein, UAD Negative (Negative)
[2024-09-30 21:20] VITALS: BP 149/68; PULSE 76; TEMP 98.6
[2024-09-30 21:22] VITALS: RESP 16; O2SAT 97
[2024-09-30] MEDS: PENICILLIN G BENZ 1,200,000 UNITS/2 ML SYRG IM ONE (21:29)
== END 2024-09-30 21:50 | disposition home or self-care (01) ==
LOC: ER 17:46
DX: J02.0 Streptococcal pharyngitis (principal); I10 Essential (primary) hypertension; E11.9 Type 2 diabetes mellitus without complications; E78.5 Hyperlipidemia, unspecified; Z20.822 Contact with and (suspected) exposure to COVID-19; Z79.84 Long term (current) use of oral hypoglycemic drugs; Z79.899 Other long term (current) drug therapy
CPT/HCPCS: 36415; 71045; 80053; 81001; 83605; 84484; 85025; 87426; 87804; 87880; 96361; 96372; 96374; 99284; J0561; J1100; J7030

== ENCOUNTER 2024-10-15 03:46 | Emergency (ER) | payer MEDICAID ==
[~2024-10-15] VITALS: Ht 175.3 cm; Wt 63.6 kg
[2024-10-15] MEDS ORDERED: VANCOMYCIN 1GM/200ML PM 200 ML IV ONE (04:30)
[2024-10-15 04:49] LABS: Hematocrit 38.3 % (41.0-53.0); Hemoglobin 13.0 g/dL (13.5-17.5); Mean Corpuscular Hemoglobin 28.7 pg (28.0-32.0); Mean Corpuscular Volume 84.6 fL (80.0-100.0); Nucleated Red Blood Cells % 0.0 %
[2024-10-15 05:03] LABS: Alanine Aminotransferase 24 U/L (7-40); Albumin 4.7 g/dL (3.2-4.8); Alkaline Phosphatase 81 U/L (46-116); Anion Gap 14 (5-15); BUN/Creatinine Ratio 12.1 (10.0-20.0); Blood Urea Nitrogen 13 mg/dL (9-23); Calcium 9.5 mg/dL (8.7-10.4); Carbon Dioxide 22 mmol/L (20-31); Chloride 101 mmol/L (98-107); Glucose 235 mg/dL (74-106); Potassium 3.5 mmol/L (3.5-5.1); Sodium 137 mmol/L (136-145); Total Protein 7.8 g/dL (5.7-8.2)
[2024-10-15 05:04] LABS: Bilirubin, Total 1.1 mg/dL (0.2-1.0)
--- NOTE | 2024-10-15 05:05 | ED.PDOC ---
General HPI Comments 74-year-old male with a history of ball palsy, diabetes, hypertension and dyslipidemia brought in by family complaining of hematuria and dysuria since around yesterday. He denies fever, nausea, vomiting or abdominal pain. Chief Complaint: Urinary Time Seen by MD: 05:05 Primary Care Provider: PREET Brandon notes: Nurses Notes Allergies: Coded Allergies: NO KNOWN ALLERGIES (Unverified , 07/13/24) Home Meds Reported Medications Omeprazole (Omeprazole Dr) 20 Mg Cap, 1 CAP PO DAILY 07/13/24 Metformin Hydrochloride (Metformin Hcl) 1,000 Mg Tab, 1 TAB PO DAILY 07/13/24 Simvastatin (Simvastatin) 10 Mg Tab, 1 TAB PO DAILY 07/13/24 Amlodipine Besylate (Amlodipine Besylate) 5 Mg Tab, 1 TAB PO DAILY 07/13/24 Atenolol (Atenolol) 25 Mg Tab, 1 TAB PO DAILY 07/13/24 Glimepiride (Glimepiride) 4 Mg Tab, 1 TAB PO BID 07/13/24 Sitagliptin Phosphate (Januvia) 100 Mg Tab, 1 TAB PO DAILY 07/13/24 Information Source: Patient Mode of Arrival: Wheelchair Severity: Moderate Inability to void: Mild Timing: Days Duration: Intermittent Has not urinated for: Minutes Onset: Spontaneous Symptoms: Dysuria, Hematuria Past Medical History PAST MEDICAL HISTORY: DM, High Lipids, HTN Past Medical History (Other): Ball palsy Surgical History: Denies all surgeries Family History Family History: Reviewed,noncontributory to illness Social History Smoker: Non-Smoker Alcohol: Denies ETOH Use Drugs: Denies Drug Use Lives In: Home Constitutional: denies: chills, diaphoresis, fatigue, fever, malaise, sweats, weakness, others EENTM: denies: blurred vision, double vision, ear bleeding, ear discharge, ear drainage, ear pain, ear ringing, eye pain, eye redness, hearing loss, mouth pain, mouth swelling, nasal discharge, nose bleeding, nose congestion, nose pain, photophobia, tearing, throat pain, throat swelling, voice changes, others Respiratory: denies: cough, hemoptysis, orthopnea, SOB at rest, shortness of breath, SOB with excertion, stridor, wheezing, others Cardiovascular: denies: chest pain, dizzy spells, diaphoresis, Dyspnea on exertion, edema, irregular heart beat, left arm pain, lightheadedness, palpitations, PND, syncope, others Gastrointestinal: denies: abdomen distended, abdominal pain, blood streaked bowels, constipated, diarrhea, dysphagia, difficulty swallowing, hematemesis, melena, nausea, poor appetite, poor fluid intake, rectal bleeding, rectal pain, vomiting, others Genitourinary: reports: dysuria, hematuria; denies: burning, flank pain, frequency, incontinence, penile discharge, penile sore, pain, testicle pain, testicle swelling, urgency, others Neurological: denies: dizziness, fainting, headache, left sided numbness, left sided weakness, numbness, paresthesia, pre-existing deficit, right sided numbness, right sided weakness, seizure, speech problems, tingling, tremors, weakness, others Musculoskeletal: denies: back pain, gout, joint pain, joint swelling, muscle pa in, muscle stiffness, neck pain, others Integumetry: denies: bruises, change in color, change in hair/nails, dryness, laceration, lesions, lumps, rash, wounds, others Allergic/Immunocompromised: denies: Difficulty Healing, Frequent Infections, Hives, Itching, others Hematologic/Lymphatic: denies: anemia, blood clots, easy bleeding, easy bruising, swollen glands, others Endocrine: denies: excessive hunger, excessive sweating, excessive thirst, excessive urination, flushing, intolerance to cold, intolerance to heat, unexplained weight gain, unexplained weight loss, others Psychiatric: denies: anxiety, bipolar disorder, depression, hopeless, panic disorder, schizophrenia, sleepless, suicidal, others All Other Systems: Reviewed and Negative (Comprehensive systems review obtained and negative except for what is stated in the HPI.) Physical Exam General Appearance: No Apparent Distress HEENT: Other ( Moist mucous membranes.) Neck: Full Range of Motion, Normal Inspection Respiratory: Lungs Clear, No Accessory Muscle Use, No Respiratory Distress, Normal Breath Sounds Cardiovascular: No Edema, No JVD, Tachycardia Breast Exam: Deferred Gastrointestinal: Non Tender, Soft Genitalia: Deferred Pelvic: Deferred Rectal: Deferred Extremities: Normal inspection, Normal range of motion, Non-tender, No pedal edema Neurologic: Alert (Oriented x4), Normal Affect, Normal Mood, Other Cerebellar Function: NOT DONE Reflexes: NOT DONE Skin: Dry, Normal Color, Warm Lymphatic: NOT DONE Was a procedure done? Was a procedure done?: No Differential Diagnosis Kidney stone (Female): N/A Kidney stone (Male): Pyelonephritis, Renal failure, Strain, Urinary obstruction, Urolithiasis, Renal infarction, Urinary tract infection, Other (Sepsis, among others) Urinary Problem (Male): Urethritis, Urinary Retention, Urolithiasis, UTI X-Ray, Labs, Meds, VS Vital Signs Date Time Temp Pulse Resp B/P (MAP) Pulse Ox O2 Delivery O2 Flow Rate FiO2 10/15/24 05:10 99.2 125 17 144/86 (105) 95 99.2 10/15/24 05:10 125 17 95 Room Air 10/15/24 04:00 99.4 138 18 165/88 95 99.4 Lab Test 10/15/24 05:10 10/15/24 04:32 Range/Units Urine Color Dark-red Yellow Urine Clarity Ex.turbid Clear Urine pH 6.5 5.0-9.0 Urine Specific [place] 1.017 1.001-1.035 Urine Protein 2+ H Negative Urine Ketones Trace Negative Urine Blood 3+ H Negative /uL Urine Nitrite Negative Negative Urine Bilirubin Negative Negative Urine Urobilinogen Normal Negative mg/dL Urine Leukocyte Esterase 2+ Negative /uL Urine Glucose 4+ H Normal mg/dL White Blood Count 22.2 H 4.4-10.8 10^3/uL Red Blood Count 4.52 4.5-5.90 10^6/uL Hemoglobin 13.0 L 13.5-17.5 g/dL Hematocrit 38.3 L 41.0-53.0 % Mean Corpuscular Volume 84.6 80.0-100.0 fL Mean Corpuscular Hemoglobin 28.7 28.0-32.0 pg Mean Corpuscular Hemoglobin Concent 33.9 32.0-36.0 g/dL Red Cell Distribution Width 14.2 11.8-14.3 % Platelet Count 73 L 140-450 10^3/uL Mean Platelet Volume 9.2 6.9-10.8 fL Neutrophils (%) (Auto) 91.3 H 37.0-80.0 % Lymphocytes (%) (Auto) 2.2 L 10.0-50.0 % Monocytes (%) (Auto) 6.0 0.0-12.0 % Eosinophils (%) (Auto) 0.0 0.0-7.0 % Basophils (%) (Auto) 0.5 0.0-2.0 % Neutrophils # (Auto) 20.2 H 1.6-8.6 10 ^3/uL Lymphocytes # (Auto) 0.5 0.4-5.4 10 ^3/uL Monocytes # (Auto) 1.3 0-1.3 10 ^3/uL Eosinophils # (Auto) 0 0-0.8 10 ^3/uL Basophils # (Auto) 0.1 0-0.2 10 ^3/uL Nucleated Red Blood Cells 0.0 % Prothrombin Time 11.9 H 9.3-11.8 sec Prothrombin Time INR 1.14 0.9-1.15 Activated Partial Thromboplast Time 26.6 24.5-34.5 SEC Sodium Level 137 136-145 mmol/L Potassium Level 3.5 3.5-5.1 mmol/L Chloride Level 101 98-107 mmol/L Carbon Dioxide Level 22 20-31 mmol/L Anion Gap 14 5-15 Blood Urea Nitrogen 13 9-23 mg/dL Creatinine 1.07 0.700-1.30 mg/dL Glomerular Filtration Rate Calc 74 >90 mL/min BUN/Creatinine Ratio 12.1 10.0-20.0 Serum Glucose 235 H 74-106 mg/dL Lactic Acid Level 1.4 0.4-2.0 mmol/L Calcium Level 9.5 8.7-10.4 mg/dL Total Bilirubin 1.1 H 0.2-1.0 mg/dL Aspartate Amino Transferase (AST) 24 13-40 U/L Alanine Aminotransferase (ALT) 24 7-40 U/L Alkaline Phosphatase 81 46-116 U/L Total Protein 7.8 5.7-8.2 g/dL Albumin 4.7 3.2-4.8 g/dL Current Medications Medications (Trade) Dose Ordered Sig/Bud Route Start Time Stop Time Status Last Admin Lactated Ringer's 2,100 ml @ 2,100 mls/hr ONCE ONCE IV 10/15/24 04:30 10/15/24 07:32 DC 10/15/24 05:10 Acetaminophen (Tylenol Tablet Or Capsule) 1,000 mg ONCE ONCE PO 10/15/24 04:30 10/15/24 04:31 DC 10/15/24 05:19 Vancomycin HCl 250 ml @ 200 mls/hr ONCE ONCE IV 10/15/24 06:00 10/15/24 07:14 DC 10/15/24 05:58 PROCEDURE(s): CXRP - CHEST PORTABLE REASON: possible sepsis ORDER NUMBER(s): [id number], ACCESSION NUMBER(s): [id number] EXAM: XY CHEST PORTABLE HISTORY: possible sepsis COMPARISON: XY CHEST PORTABLE on DOS: 09/30/24 TECHNIQUE: Portable AP view of the chest was performed. FINDINGS: No pneumothorax, consolidative infiltrates, or pulmonary edema. The heart is not enlarged. The aortic arch is calcific. IMPRESSION: No acute intrathoracic process. : CT CT AB PEL WO CON-NO ORAL OR IV HISTORY: hematuria COMPARISON: None TECHNIQUE: Helical CT images of the abdomen and pelvis were performed without IV contrast. Sagittal and coronal reformatted images were obtained. This CT exam was performed using one or more of the following dose reduction techniques: Automated exposure control, adjustment of the mA and/or kv according to patient size, or the use of iterative reconstruction techniques. Radiation Dose: Abdomen/Pelvis: CTDIvol 7.39 mGy, DLP 400s of the 0.39 mGy*cm. FINDINGS: CT abdomen: The lung bases are clear. The heart is borderline enlarged. There are coronary artery calcifications. The central pulmonary arteries are ectatic the liver is borderline diffusely fatty density. There are calcified granulomas in the left lobe of the liver. There are nonobstructing bilateral renal subcent imeter calculi. Probable small left renal parapelvic cysts. The noncontrast spleen, gallbladder, pancreas, and adrenal glands are unremarkable. No abdominal aortic aneurysm. CT pelvis: No abnormal bowel dilatation, free air, or free fluid. There is fecal retention in the colon, greater proximally. The appendix is mildly dilated to 9 mm diameter, but without periappendiceal fat stranding (images 53-56, series 601; images 65-69, series 2). There is moderate to severe prostatic enlargement with mass effect on the urinary bladder. The urinary bladder is not distended. There is a small fatty left inguinal indirect hernia. There is [id number] Lumbar degenerative disc disease and facet arthropathy. There is mild osteoarthritis of the hips. IMPRESSION: 1. Coronary artery disease and Borderline cardiomegaly. 2. Pulmonary arterial hypertension. 3. Nonobstructing bilateral nephrolithiasis. 4. Fecal retention in the colon which may indicate constipation. 5. Mildly dilated appendix without other evidence of acute appendicitis. This may be a chronic finding for the patient or due to very early acute appendicitis. The patient complains of right lower quadrant abdominal pain or develops worsening symptoms, consider repeat CT imaging of the pelvis and surgical consultation. 6. Moderate to severe prostatic enlargement with mass effect on the urinary bladder. Recommend urology consultation if not already obtained. X-Ray, Labs, Meds, VS Comment 74-year-old male with a history of ball palsy, hypertension, diabetes and dyslipidemia complaining of hematuria and dysuria Vitals remarkable for heart rate 138, BP 165/88 Exam remarkable for tachycardia Rhythm strip independently interpreted by me: Sinus tach, rate 138, no ectopy. Chest x-ray unremarkable CT abdomen and pelvis IMPRESSION: 1. Coronary artery disease and Borderline cardiomegaly. 2. Pulmonary arterial hypertension. 3. Nonobstructing bilateral nephrolithiasis. 4. Fecal retention in the colon which may indicate constipation. 5. Mildly dilated appendix without other evidence of acute appendicitis. This may be a chronic finding for the patient or due to very early acute appendicitis. The patient complains of right lower quadrant abdominal pain or develops worsening symptoms, consider repeat CT imaging of the pelvis and surgical consultation. 6. Moderate to severe prostatic enlargement with mass effect on the urinary bladder. Recommend urology consultation if not already obtained. CBC remarkable for WBC 22.2, CMP remarkable for glucose 235, lactate 1.4, UA abnormal consistent with UTI Patient treated with the following in the ED: Tylenol 1 g p.o., 30 cc/kilogram LR bolus, cefepime 2 g IV, vancomycin per pharmacy IV On re-evaluation, tachycardia is improving. Other vitals were stable. Doubt acute appendicitis, as the patient is not complaining of abdominal pain and has no abdominal tenderness on exam. Plan was to admit the patient for IV antibiotics, surgery and Urology consultations. When hospitalist attempted to interview the patient for admission, he adamantly stated he did not want to be admitted to the hospital and insisted on signing out against medical advice. He was advised of the risks including worsening symptoms, permanent disability or . He expressed understanding of these risks, and insisted on leaving. He was alert, oriented x4 and capable of making informed decisions at the time he signed out. Time of 1ST Reevaluation: 05:04 Reevaluation 1ST: Unchanged Patient Education/Counseling: Diagnosis, Treatment Family Education/Counseling: Diagnosis, Treatment SEPSIS Sepsis Screen Date sepsis recognized/suspect: Oct 15, 2024 Time Sepsis recognized/suspect: 403 Recent Procedure: No On Antibiotic Therapy: No Respiratory Rate >20: No Heart Rate >90: Yes Temp<36 C (96.8 F) or >38.3 C: No SBP <90 or MAP <65 mmHG: No New Acute Mental Status Change: No Is the patient on CPAP, BIPAP,: No Physician Orders Chest Portable (10/15/24 04:16) Blood Culture (10/15/24 04:16) Ct Ab Pel Wo Con-No Oral Or Iv (10/15/24 04:16) Vital Signs Date Time Temp Pulse Resp B/P (MAP) Pulse Ox O2 Delivery O2 Flow Rate FiO2 10/15/24 05:10 99.2 125 17 144/86 (105) 95 99.2 10/15/24 05:10 125 17 95 Room Air 10/15/24 04:00 99.4 138 18 165/88 95 99.4 Laboratory Tests Test 10/15/24 04:32 Lactic Acid Level 1.4 mmol/L (0.4-2.0) White Blood Count 22.2 10^3/uL (4.4-10.8) H Medications Medications Dose Ordered Sig/Bud Route Start Time Stop Time Status Last Admin Dose Admin Acetaminophen 1,000 mg ONCE ONCE PO 10/15/24 04:30 10/15/24 04:31 DC 10/15/24 05:19 Lactated Ringer's 2,100 ml @ 2,100 mls/hr ONCE ONCE IV 10/15/24 04:30 10/15/24 07:32 DC 10/15/24 05:10 Vancomycin HCl 250 ml @ 200 mls/hr ONCE ONCE IV 10/15/24 06:00 10/15/24 07:14 DC 10/15/24 05:58 Reassessment Post Fluid SEPSIS FOCUS EXAM(REASSESSMENT Sepsis reassessment focused exam completed. Date: 10/15/24 Time 05:46 Departure 1 Departure Time of Disposition: 05:46 Impression: Primary Impression: UTI (urinary tract infection) Additional Impressions: Sepsis Nephrolithiasis Disposition: 07 LEFT AGAINST MEDICAL ADVICE Condition: Guarded Discharged With: Relative Critical Care Note Critical Care Time?: Yes (45 min-critical care time only) Critical care comment: Critical care time including multiple bedside re-evaluations, review of lab and imaging studies, and discussion of the case with the admitting provider. Patient is high risk for hemodynamic decompensation. Stability Stability form required: No Heart Score Heart Score: Heart Score Response (Comments) Value History N/A 0 EKG N/A 0 Age N/A 0 Risk Factors N/A 0 Troponin N/A 0 Total 0 I personally scribed for ZITA SAENZ MD ([email or web address]) on 10/15/24 at 05:05. Electronically submitted by Clinton Talbert ([facility] [employer]). I personally scribed for ZITA SAENZ MD ([email or web address]) on 10/15/24 at 05:56. Electronically submitted by Clinton Talbert ([facility]). ZITA SAENZ MD Oct 15, 2024 05:05
[2024-10-15] MEDS: LACTATED RINGER'S 2,100 ML IV ONE (05:10)
[2024-10-15] MEDS: ACETAMINOPHEN 500 MG TAB or CAP PO ONE (05:19)
--- NOTE | 2024-10-15 05:29 | DVH ---
EXAM: XY CHEST PORTABLE HISTORY: possible sepsis COMPARISON: XY CHEST PORTABLE on DOS: 09/30/24 TECHNIQUE: Portable AP view of the chest was performed. FINDINGS: No pneumothorax, consolidative infiltrates, or pulmonary edema. The heart is not enlarged. The aortic arch is calcific. IMPRESSION: No acute intrathoracic process.
[2024-10-15 05:34] LABS: Urine Protein, UAD 2+ (Negative)
[2024-10-15] MEDS: VANCOMYCIN 1GM/200ML PM 200 ML IV ONE (05:34)
--- NOTE | 2024-10-15 05:39 | DVH ---
EXAM: CT CT AB PEL WO CON-NO ORAL OR IV HISTORY: hematuria COMPARISON: None TECHNIQUE: Helical CT images of the abdomen and pelvis were performed without IV contrast. Sagittal a nd coronal reformatted images were obtained. This CT exam was performed using one or more of the foll owing dose reduction techniques: Automated exposure control, adjustment of the mA and/or kv according to patient size, or the use of iterative reconstruction techniques. Radiation Dose: Abdomen/Pelvis: CTDIvol 7.39 mGy, DLP 400s of the 0.39 mGy*cm. FINDINGS: CT abdomen: The lung bases are clear. The heart is borderline enlarged. There are coronary artery haris cifications. The central pulmonary arteries are ectatic the liver is borderline diffusely fatty densi ty. There are calcified granulomas in the left lobe of the liver. There are nonobstructing bilateral renal subcentimeter calculi. Probable small left renal parapelvic cysts. The noncontrast spleen, gal lbladder, pancreas, and adrenal glands are unremarkable. No abdominal aortic aneurysm. CT pelvis: No abnormal bowel dilatation, free air, or free fluid. There is fecal retention in the col on, greater proximally. The appendix is mildly dilated to 9 mm diameter, but without periappendiceal fat stranding (images 53-56, series 601; images 65-69, series 2). There is moderate to severe prostat ic enlargement with mass effect on the urinary bladder. The urinary bladder is not distended. There is a small fatty left inguinal indirect hernia. There is [id number] Lumbar degenerative disc d isease and facet arthropathy. There is mild osteoarthritis of the hips. IMPRESSION: 1. Coronary artery disease and Borderline cardiomegaly. 2. Pulmonary arterial hypertension. 3. Nonobstructing bilateral nephrolithiasis. 4. Fecal retention in the colon which may indicate constipation. 5. Mildly dilated appendix without other evidence of acute appendicitis. This may be a chronic findin g for the patient or due to very early acute appendicitis. The patient complains of right lower quadr ant abdominal pain or develops worsening symptoms, consider repeat CT imaging of the pelvis and surgi haris consultation. 6. Moderate to severe prostatic enlargement with mass effect on the urinary bladder. Recommend urolo gy consultation if not already obtained.
[2024-10-15 05:42] LABS: INR 1.14 (0.9-1.15); Partial Thromboplastin Time 26.6 SEC (24.5-34.5); Prothrombin Time 11.9 sec (9.3-11.8)
[2024-10-15] MEDS: VANCOMYCIN 1GM/250ML KIT 250 ML IV ONE ×2 (05:58)
[2024-10-15] MEDS ORDERED: CEFEPIME 1GM/ 50ML 50 ML IV SCH (06:00)
[2024-10-15] MEDS ORDERED: VANCOMYCIN PER PHARMACY 0 MG IV SCH (07:15)
[2024-10-15] MEDS ORDERED: DEXTROSE (50%) 50ML SYRG IV PRN (07:15)
[2024-10-15] MEDS ORDERED: ACETAMINOPHEN 325 MG TAB PO PRN (07:15)
[2024-10-15] MEDS ORDERED: SODIUM CHLORIDE 0.9% 1,000 ML IV SCH (07:15)
[2024-10-15] MEDS ORDERED: ONDANSETRON HCL 4 MG/2 ML VIAL IV PRN (07:15)
[2024-10-15] MEDS ORDERED: MORPHINE SULFATE INJ 2 MG/ml SYRG IV PRN (07:15)
[2024-10-15 07:27] VITALS: BP 152/104; PULSE 95; RESP 18; TEMP 98.1; O2SAT 97
[2024-10-15] MEDS ORDERED: PANTOPRAZOLE 40 MG/10 ML VIAL INJ IV ONE (07:30)
[2024-10-15] MEDS ORDERED: ATENOLOL 25 MG TAB PO SCH (10:00)
[2024-10-15] MEDS ORDERED: InsuLIN REG 1unit/0.01ml Soln (100units/ml) SC SCH (12:00)
[2024-10-15] MEDS ORDERED: ACCU-CHEK COMFORT CURVE STRIP VI SCH (12:00)
--- NOTE | 2024-10-15 17:03 | DVHDS2 ---
Discharge Summary Date of Admission Oct 15, 2024 at 07:08 Date of Discharge: Oct 15, 2024 Labs/Diagnostic Data: Laboratory Results Test 10/15/24 05:10 10/15/24 04:32 Urine Color Dark-red (Yellow) Urine Clarity Ex.turbid (Clear) Urine pH 6.5 (5.0-9.0) Urine Specific [place] 1.017 (1.001-1.035) Urine Protein 2+ (Negative) Urine Ketones Trace (Negative) Urine Blood 3+ /uL (Negative) Urine Nitrite Negative (Negative) Urine Bilirubin Negative (Negative) Urine Urobilinogen Normal mg/dL (Negative) Urine Leukocyte Esterase 2+ /uL (Negative) Urine Glucose 4+ mg/dL (Normal) White Blood Count 22.2 10^3/uL (4.4-10.8) Red Blood Count 4.52 10^6/uL (4.5-5.90) Hemoglobin 13.0 g/dL (13.5-17.5) Hematocrit 38.3 % (41.0-53.0) Mean Corpuscular Volume 84.6 fL (80.0-100.0) Mean Corpuscular Hemoglobin 28.7 pg (28.0-32.0) Mean Corpuscular Hemoglobin Concent 33.9 g/dL (32.0-36.0) Red Cell Distribution Width 14.2 % (11.8-14.3) Platelet Count 73 10^3/uL (140-450) Mean Platelet Volume 9.2 fL (6.9-10.8) Neutrophils (%) (Auto) 91.3 % (37.0-80.0) Lymphocytes (%) (Auto) 2.2 % (10.0-50.0) Monocytes (%) (Auto) 6.0 % (0.0-12.0) Eosinophils (%) (Auto) 0.0 % (0.0-7.0) Basophils (%) (Auto) 0.5 % (0.0-2.0) Neutrophils # (Auto) 20.2 10 ^3/uL (1.6-8.6) Lymphocytes # (Auto) 0.5 10 ^3/uL (0.4-5.4) Monocytes # (Auto) 1.3 10 ^3/uL (0-1.3) Eosinophils # (Auto) 0 10 ^3/uL (0-0.8) Basophils # (Auto) 0.1 10 ^3/uL (0-0.2) Nucleated Red Blood Cells 0.0 % Prothrombin Time 11.9 sec (9.3-11.8) Prothrombin Time INR 1.14 (0.9-1.15) Activated Partial Thromboplast Time 26.6 SEC (24.5-34.5) Sodium Level 137 mmol/L (136-145) Potassium Level 3.5 mmol/L (3.5-5.1) Chloride Level 101 mmol/L (98-107) Carbon Dioxide Level 22 mmol/L (20-31) Anion Gap 14 (5-15) Blood Urea Nitrogen 13 mg/dL (9-23) Creatinine 1.07 mg/dL (0.700-1.30) Glomerular Filtration Rate Calc 74 mL/min (>90) BUN/Creatinine Ratio 12.1 (10.0-20.0) Serum Glucose 235 mg/dL (74-106) Lactic Acid Level 1.4 mmol/L (0.4-2.0) Calcium Level 9.5 mg/dL (8.7-10.4) Total Bilirubin 1.1 mg/dL (0.2-1.0) Aspartate Amino Transferase (AST) 24 U/L (13-40) Alanine Aminotransferase (ALT) 24 U/L (7-40) Alkaline Phosphatase 81 U/L (46-116) Total Protein 7.8 g/dL (5.7-8.2) Albumin 4.7 g/dL (3.2-4.8) Other Laboratory Tests 10/15/24 04:32 Brief Hx & Hospital Course: 74-year-old male with a history of [place] palsy, diabetes, hypertension and dyslipidemia brought in by family complaining of hematuria and dysuria since around 30 yesterday. He denies fever, nausea, vomiting or abdominal pain. left AMA prior to being seen Condition at Discharge: Undetermined Final Diagnosis/Problems List hematuria Discharge Disposition: AMA Discharge Instruct/Medications Scheduled Amlodipine Besylate (Amlodipine Besylate), 1 TAB PO DAILY, (Reported) Atenolol (Atenolol), 1 TAB PO DAILY, (Reported) Glimepiride (Glimepiride), 1 TAB PO BID, (Reported) Metformin Hydrochloride (Metformin Hcl), 1 TAB PO DAILY, (Reported) Omeprazole (Omeprazole Dr), 1 CAP PO DAILY, (Reported) Simvastatin (Simvastatin), 1 TAB PO DAILY, (Reported) Sitagliptin Phosphate (Januvia), 1 TAB PO DAILY, (Reported) Discharge Statement: "Patient was advised to return to the ER or call 911 if any headaches, dizziness, shortness of breath, chest pain, abdominal pain, bleeding, fevers, or worsening of medical condition. Patient was counseled about treatment plan, medications, possible side effects, patientverbalized understanding. All questions were answered to the best of my ability. This discharge took greater then 30 minutes in planning, reviewing documentation, counseling the patient, and discussing with other team members." ASSESSMENT ASSESSMENT Assessment Date of Service: Oct 15, 2024 Billing Provider: MARY PERALTA MD Common Visit Codes: 76146-DDT/OBS DISCH DAY <30MIN MARY PERALTA MD Oct 15, 2024 17:03
[2024-10-15] MEDS ORDERED: PRAVASTATIN SODIUM 20 MG TAB PO SCH (22:00)
[2024-10-16] MEDS ORDERED: PANTOPRAZOLE 40 MG/10 ML VIAL INJ IV SCH (10:00)
== END 2024-10-15 07:31 | disposition left against medical advice (07) ==
LOC: ER 03:46 → OVERFLOW 07:08 → UNDOADMIN 07:08 → UNDODISIN 07:27
DX: A41.9 Sepsis, unspecified organism (principal); N39.0 Urinary tract infection, site not specified; N20.0 Calculus of kidney; E11.9 Type 2 diabetes mellitus without complications; I10 Essential (primary) hypertension; E78.5 Hyperlipidemia, unspecified; Z79.899 Other long term (current) drug therapy
CPT/HCPCS: 36415; 71045; 74176; 80053; 81003; 83605; 85025; 85610; 85730; 87040; 96361; 96365; 99291; J3373; G0378

== ENCOUNTER 2024-10-26 08:55 | Outpatient (CLI) | payer MEDICAID ==
[2024-10-26 09:58] LABS: Hematocrit 34.5 % (41.0-53.0); Hemoglobin 11.4 g/dL (13.5-17.5); Mean Corpuscular Hemoglobin 28.1 pg (28.0-32.0); Mean Corpuscular Volume 84.8 fL (80.0-100.0); Nucleated Red Blood Cells % 0.0 %
[2024-10-26 10:46] LABS: Chloride 104 mmol/L (98-107); Potassium 4.5 mmol/L (3.5-5.1); Sodium 139 mmol/L (136-145)
[2024-10-26 10:47] LABS: Anion Gap 8 (5-15); Calcium 9.5 mg/dL (8.7-10.4); Carbon Dioxide 27 mmol/L (20-31)
[2024-10-26 10:52] LABS: BUN/Creatinine Ratio 7.8 (10.0-20.0); Blood Urea Nitrogen 9 mg/dL (9-23)
[2024-10-26 10:54] LABS: Glucose 165 mg/dL (74-106)
== END 2024-10-26 17:00 | disposition home or self-care (01) ==
LOC: LAB 08:55
PROVIDERS: ATTEND Internal Medicine
DX: E11.65 Type 2 diabetes mellitus with hyperglycemia (principal); A41.89 Other specified sepsis
CPT/HCPCS: 36415; 80048; 85025

== ENCOUNTER 2024-12-26 06:47 | Outpatient (CLI) | payer MEDICAID ==
[2024-12-26 07:27] LABS: Hematocrit 36.5 % (41.0-53.0); Hemoglobin 12.3 g/dL (13.5-17.5); Mean Corpuscular Hemoglobin 28.4 pg (28.0-32.0); Mean Corpuscular Volume 84.0 fL (80.0-100.0); Nucleated Red Blood Cells % 0.0 %
[2024-12-26 07:52] LABS: Alanine Aminotransferase 15 U/L (7-40); Albumin 4.2 g/dL (3.2-4.8); Alkaline Phosphatase 67 U/L (46-116); Anion Gap 11 (5-15); BUN/Creatinine Ratio 17.8 (10.0-20.0); Blood Urea Nitrogen 18 mg/dL (9-23); Calcium 9.0 mg/dL (8.7-10.4); Carbon Dioxide 27 mmol/L (20-31); Chloride 104 mmol/L (98-107); Potassium 4.4 mmol/L (3.5-5.1); Sodium 142 mmol/L (136-145); Total Protein 7.6 g/dL (5.7-8.2)
[2024-12-26 07:53] LABS: Bilirubin, Total 0.4 mg/dL (0.2-1.0)
[2024-12-26 07:58] LABS: Glucose 131 mg/dL (74-106)
== END 2024-12-26 17:00 | disposition home or self-care (01) ==
LOC: LAB 06:47
PROVIDERS: ATTEND Physician Assistant Medical
DX: D69.6 Thrombocytopenia, unspecified (principal)
CPT/HCPCS: 36415; 80053; 85025

== ENCOUNTER 2025-01-13 07:50 | Outpatient (CLI) | payer MEDICAID ==
[2025-01-13 08:27] LABS: Hematocrit 38.8 % (41.0-53.0); Hemoglobin 13.2 g/dL (13.5-17.5); Mean Corpuscular Hemoglobin 28.2 pg (28.0-32.0); Mean Corpuscular Volume 82.7 fL (80.0-100.0); Nucleated Red Blood Cells % 0.0 %
[2025-01-13 08:43] LABS: Alanine Aminotransferase 18 U/L (7-40); Albumin 4.5 g/dL (3.2-4.8); Alkaline Phosphatase 78 U/L (46-116); Anion Gap 9 (5-15); BUN/Creatinine Ratio 11.9 (10.0-20.0); Bilirubin, Total 0.4 mg/dL (0.2-1.0); Blood Urea Nitrogen 14 mg/dL (9-23); Calcium 9.9 mg/dL (8.7-10.4); Carbon Dioxide 30 mmol/L (20-31); Chloride 101 mmol/L (98-107); Potassium 3.9 mmol/L (3.5-5.1); Sodium 140 mmol/L (136-145); Total Protein 8.2 g/dL (5.7-8.2)
[2025-01-13 08:52] LABS: Glucose 132 mg/dL (74-106)
[2025-01-13 10:05] LABS: Wright Stain Ready for Review
[2025-01-13 10:58] LABS: Total Iron Binding Capacity 349.0 ug/dL (250-425)
[2025-01-13 11:02] LABS: Iron 49.0 ug/dL (65-175)
[2025-01-13 12:50] LABS: Ferritin 21.8 ng/mL (22-322)
== END 2025-01-13 17:00 | disposition home or self-care (01) ==
LOC: LAB 07:50
PROVIDERS: ATTEND Internal Medicine
DX: D69.6 Thrombocytopenia, unspecified (principal)
CPT/HCPCS: 36415; 80053; 82607; 82668; 82728; 82746; 83010; 83540; 83550; 83615; 85025; 85045